=== PATIENT | female | born 1945 | race Caucasian/White ===

== ENCOUNTER 2020-08-09 19:01 | Inpatient (IN) | payer OTHER, MEDICARE, SELFPAY ==
[~2020-08-09] VITALS: Ht 134.6 cm; Wt 89.4 kg
--- NOTE | 2020-08-09 19:02 | NUR ---
PATIENT KYLE ALS TO ER BED 01
[2020-08-09 19:05] VITALS: BP 135/69
--- NOTE | 2020-08-09 19:06 | NUR ---
DAUGHTER'S PHONE NUMBER [phone] NAME UNKNOWN
--- NOTE | 2020-08-09 19:10 | NUR ---
75 Y/O FEMALE BIBA FROM HOME C/O SOB AND TACHYCARDIA. PT DENIES PAIN AT THIS TIME. NO DISTRESS NOTED. PT DENIES N/V/DIARRHEA. PT STATES 'I FEEL FINE'. A/OX4. PERRLA. LUNG SOUNDS ARE CLEAR BILATERALLY. NO EDEMA NOTED TO EXTREMITIES. BOWEL SOUNDS ARE ACTIVEX4 QUADRANTS. NORMAL HEART SOUNDS NOTED. PT IS NON-AMB. PT USES INCONTINENCE BRIEFS. PT IS SAO TOMEAN SPEAKING. CONNECTED TO THE PIPE COREMAKER. WILL CONTINUE TO MONITOR. PMH: HTN, DM, HYLD, POLIO NKA
--- NOTE | 2020-08-09 19:20 | NUR ---
XRAY AT BEDSIDE
--- NOTE | 2020-08-09 19:28 | NUR ---
LAB AT BEDSIDE
[2020-08-09] MEDS ORDERED: ACETAMINOPHEN 325 MG TAB PO ONE (19:45)
[2020-08-09] MEDS ORDERED: NACL 0.9% 1,000 ML IV ONE (19:45)
[2020-08-09] MEDS ORDERED: ACETAMINOPHEN EXTRA STRENGTH 500 MG TAB ONE (19:49)
[2020-08-09] MEDS ORDERED: ACETAMINOPHEN EXTRA STRENGTH 500 MG TAB PO ONE (19:50)
[2020-08-09 19:56] LABS: BASOPHILS % (AUTO) 0.2 % (0.0-2.0); HEMATOCRIT 33.5 % (36-48); HEMOGLOBIN 11.1 g/dL (12.0-16.0); LYMPHOCYTES # (AUTO) 0.9 K/uL (2.5-16.5); LYMPHOCYTES % (AUTO) 18.9 % (20.5-51.1); MEAN CORPUSCULAR HEMOGLOBIN 29 pg (27-31); MEAN CORPUSCULAR HGB CONC 33 g/dL (33-37); MEAN CORPUSCULAR VOLUME 86.7 fL (80-94); MONOCYTES # (AUTO) 0.3 K/uL (0.8-1.0); MONOCYTES % (AUTO) 5.9 % (1.7-9.3); NEUTROPHILS # (AUTO) 3.7 K/uL (1.8-7.7); PLATELET COUNT (AUTO) 251 K/uL (140-450); RED BLOOD CELL COUNT(AUTO) 3.87 MIL/uL (4.20-5.40); RED CELL DISTRIBUTION WIDTH 13.5 % (11.6-13.7); WHITE BLOOD COUNT (AUTO) 4.9 K/uL (4.8-10.8)
[2020-08-09 20:08] LABS: ALBUMIN 3.6 g/dL (3.4-5.0); ANION GAP 15.6 (8-16); ASPARTATE AMINOTRANSFERASE 17 U/L (15-37); CHLORIDE 98 mmol/L (98-107); CREATININE 0.5 mg/dL (0.6-1.3); GLUCOSE 134 mg/dL (74-106); POTASSIUM 3.6 mmol/L (3.5-5.1); SODIUM SERUM 133 mmol/L (136-145); TOTAL BILIRUBIN 0.2 mg/dL (0.0-1.0); UREA NITROGEN, BLOOD 13 mg/dL (7-18)
[2020-08-09 20:17] LABS: C-REACTIVE PROTEIN QUANT 2.6 mg/dL (0.0-0.9)
--- NOTE | 2020-08-09 20:40 | NUR ---
INSERTED STRIGHT CATHETERIZATION TO OBTAIN URINE SPECIMEN PER MD ORDER. PT TOLERATED WELL. URINE CLEAR AND YELLOW. 200ML OUTPUT. WILMER-CARE PROVIDED. PT WAS PLACED IN A GOWN
--- NOTE | 2020-08-09 21:00 | NUR ---
COVID SWAB COLLECTED AND WALKED OVER TO LAB
[2020-08-09 21:17] LABS: APPEARANCE,URINE CLEAR (CLEAR); BILIRUBIN,URINE NEGATIVE (NEGATIVE); BLOOD, URINE NEGATIVE (NEGATIVE); COLOR,URINE YELLOW (YELLOW); LEUKOCYTE ESTERASE ,URINE NEGATIVE (NEGATIVE); NITRITE, URINE NEGATIVE (NEGATIVE); UGLUCOSE NEGATIVE (NEGATIVE)
--- NOTE | 2020-08-09 21:53 | NUR ---
ERMD AT BEDSIDE
--- NOTE | 2020-08-09 22:35 | NUR ---
SPOKE WITH THE PTS SON ORACIO HOFF-HE GAVE HIS INFORMATION TO THE NEWSPAPER MANAGING EDITOR AND ITS IN THE PTS CHART. PT GAVE ME PERSMISSION TO SPEAK WITH HIM. THE PTS SON WAS UPDATED ON THE PTS STATUS AND ADMISSION TO THE HOSPITAL.
--- NOTE | 2020-08-09 23:30 | NUR ---
PT IS RESTING WITH EYES CLOSED. PT IS CONNECTED TO THE TANK CAR REPAIRER.BED IS LOCKED AND IN LOWEST POSITION. SIDE RAILSX2 FOR PT PROTECTION. PT IS NOT IN ANY DISTRESS AT THE MOMENT. WILL CONTINUE TO MONITOR.
[2020-08-09] MEDS ORDERED: MAG SULF 2000 MG/WATER PREMIX 50 ML IV PRN (23:45)
[2020-08-09] MEDS ORDERED: MORPHINE SULFATE 4 MG/ML SYR IVP PRN (23:45)
[2020-08-09] MEDS ORDERED: NACL 0.9% 1,000 ML IV SCH (23:45)
[2020-08-09] MEDS ORDERED: LORazepam 1 MG TAB PO PRN (23:45)
[2020-08-09] MEDS ORDERED: HYDROcodone/APAP 5/325 MG 1 TAB TAB PO PRN (23:45)
[2020-08-09] MEDS ORDERED: ONDANSETRON 4 MG/2 ML VIAL IVP PRN (23:45)
[2020-08-09] MEDS ORDERED: KCL 20 MEQ/WATER INJ PREMIX 200 ML IV PRN (23:45)
[2020-08-10] MEDS ORDERED: DEXTROSE 50% 50 ML SYR IVP PRN
--- NOTE | 2020-08-10 00:20 | NUR ---
PT IS RESTING WITH HOB ELEVATED IN SEMIFOWLERS POSITION. PT IS CONNECTED TO THE EMERGENCY DETAIL DRIVER. SAO2@97% ON 2L NC. PT IS NOT IN ANY DISTRESS AT THIS TIME. BED IS LOCKED AND IN LOWEST POSITION.SIDE RAILSX2. WILL CONTINUE TO MONITOR.
[2020-08-10] MEDS ORDERED: cefTRIAXone 1,000 MG VIAL ONE (00:35)
[2020-08-10] MEDS ORDERED: AZITHROMYCIN 500 MG INJ VIAL IV ONE (00:35)
--- NOTE | 2020-08-10 01:30 | NUR ---
PT IS RESTING WITH HOB ELEVATED IN SEMI-FOWLERS FOR COMFORT. PT STATED THE BED IS UNCOMFORTABLE. NOTIFIED HER THAT SHE WILL BE MOVING TO A BETTER BED AND ROOM AFTER 0700. PT IS CONNECTED TO THE PNEUMATIC JACKETER. SAO2@98% 2L NC. NO VISIBLE DISTRESS NOTED. BED IS LOCKED AND IN LOWEST POSITION. SIDE RAILSX2 FOR PT PROTECTION. WILL CONTINUE TO MONITOR.
[2020-08-10] MEDS: AZITHROMYCIN 500 MG in DEXTROSE 5% 250 ML IV SCH (01:50)
--- NOTE | 2020-08-10 02:39 | NUR ---
PT IS ASLEEP WITH HOB IN LOW FOWLERS POSITION. VISIBLE RISE AND FALL OF CHEST NOTED. PT IS CONNECTED TO THE IN HOUSE CRA. SAO2@97% ON 2L NC. BED IS LOCKED AND IN LOWEST POSITION. SIDE RAILSX1 FOR PT PROTECTION. WILL CONTINUE TO MONITOR.
--- NOTE | 2020-08-10 03:20 | NUR ---
PT IS ASLEEP. SIDE RAILSX2 FOR PT PROTECTION. BED IS LOCKED AND IN LOWEST POSITION. PT CONNECTED TO THE AQUATICS DIRECTOR. SAO2@97% ON 2 L NC. BED IS LOCKED AND IN LOWEST POSITION. PT IS NOT IN ANY DISTRESS AT THIS TIME. WILL CONTINUE TO MONITOR.
[2020-08-10] MEDS ORDERED: METF500T2 PO (04:13)
[2020-08-10] MEDS ORDERED: METO25TE2 PO (04:13)
--- NOTE | 2020-08-10 04:35 | NUR ---
PT IS ASLEEP. HOB IN LOW FOWLERS. BED IS LOCKED AND IN LOWEST POSITION. PT IS NOT IN ANY DISTRESS AT THIS TIME. PT CONNECTED TO THE PUBLIC HEALTH INFORMATICIAN. SIDE RAILSX2 FOR PT PROTECTION. WILL CONTINUE TO MONITOR
--- NOTE | 2020-08-10 05:40 | NUR ---
PT IS SLEEPING. VISIBLE RISE AND FALL OF CHEST NOTED. PT IS ON 2L NC SATTING AT 98%. PT IS NOT IN ANY DISTRESS AT THIS TIME. BED IS LOCKED AND IN LOWEST POSITION. CALL LIGHT WITHIN REACH. SIDE RAILSX2 FOR PT PROTECTION. WILL CONTINUE TO MONITOR.
--- NOTE | 2020-08-10 06:28 | NUR ---
PT IS SLEEPING. VISIBLE RISE AND FALL OF CHEST NOTED. PT IS CONNECTED TO THE RIDES SUPERVISOR. SAO2@97% ON 2 L NC. BED IS LOCKED AND IN LOWEST POSITION. PT IS NOT IN ANY DSTRESS AT THIS TIME. CALL LIGHT IS WITHIN REACH. SIDE RAILS X2 FOR PT PROTECTION. WILL CONTINUE TO MONITOR.
--- NOTE | 2020-08-10 06:39 | NUR ---
BLOOD GLUCOSE LEVEL@94
--- NOTE | 2020-08-10 06:40 | NUR ---
ORAL TEMP AT 99.8---DID NOT ADMIN TYLENOL BECAUSE PRN ORDERS FOR TYLENOL FOR A TEMP GREATER THAN 100.4
[2020-08-10] MEDS: BLOOD GLUCOSE MONITORING 1 DEV DEV FS SCH ×4 (06:42→20:59)
--- NOTE | 2020-08-10 06:47 | NUR ---
PT C/O MILD PAIN 310 IN HER LOWER BACK FROM THE BED. I LET HER KNOW THAT SHE WILL BE MOVING TO A NEW BED AND NEW ROOM WITHIN THE NEXT 1-2 HOURS.
[2020-08-10] MEDS: ACETAMINOPHEN 325 MG TAB PO PRN ×2 (06:51→17:08)
--- NOTE | 2020-08-10 07:15 | NUR ---
REPORT GIVEN TO HAYLEY ANDERSON FOR TRANSFER OF CARE.
--- NOTE | 2020-08-10 07:16 | NUR ---
REPORT RECEIVED FROM FRANCHESCA HARDY, TRANSFER OF CARE AT THIS TIME
--- NOTE | 2020-08-10 07:30 | NUR ---
PT ALERT AND AWAKE, BREATHING EVEN AND UNLABORED. NO DISTRESS NOTED. PT GIVEN TISSUE [place]
[2020-08-10 07:40] LABS: BASOPHILS % (AUTO) 0.6 % (0.0-2.0); EOSINOPHILS % (AUTO) 0.1 % (0.0-4.0); HEMATOCRIT 31.7 % (36-48); HEMOGLOBIN 10.4 g/dL (12.0-16.0); LYMPHOCYTES # (AUTO) 1.3 K/uL (2.5-16.5); LYMPHOCYTES % (AUTO) 31.5 % (20.5-51.1); MEAN CORPUSCULAR HEMOGLOBIN 28 pg (27-31); MEAN CORPUSCULAR HGB CONC 33 g/dL (33-37); MEAN CORPUSCULAR VOLUME 86.5 fL (80-94); MONOCYTES # (AUTO) 0.3 K/uL (0.8-1.0); MONOCYTES % (AUTO) 7.3 % (1.7-9.3); NEUTROPHILS # (AUTO) 2.4 K/uL (1.8-7.7); NEUTROPHILS % (AUTO) 60.5 % (42.2-75.2); PLATELET COUNT (AUTO) 216 K/uL (140-450); RED BLOOD CELL COUNT(AUTO) 3.67 MIL/uL (4.20-5.40); RED CELL DISTRIBUTION WIDTH 13.5 % (11.6-13.7)
--- NOTE | 2020-08-10 08:00 | NUR ---
Note blossom in EDM - 08/10/20 at 0906 by ROBERTO Patient will be admitted to care of Dr Zuñiga. Admited to tele. Will go to room 113A. Belongings list completed. Report to Adriana HARDY.
--- NOTE | 2020-08-10 08:00 | NUR ---
Patient will be admitted to care of Dr Zuñiga. Admited to [facility]. Will go to room 113A. Belongings list completed. Report to Adriana HARDY.
--- NOTE | 2020-08-10 08:00 | NUR ---
Note blossom in EDM - 08/10/20 at 0801 by ROBERTO Patient will be admitted to care of Dr Zuñiga. Admited to [facility]. Will go to room 113A. Belongings list completed. Report to Adriana HARDY.
[2020-08-10] MEDS: DOCUSATE SODIUM 100 MG GELCAP PO SCH (08:47)
[2020-08-10 08:50] LABS: PROTHROMBIN TIME 9.7 secs (10.8-13.4)
[2020-08-10 09:00] VITALS: BP_SYST 148; BP_SYST 164; BP_DIAS 63; BP_DIAS 96
--- NOTE | 2020-08-10 09:00 | NUR ---
RECEIVED PATIENT FROM ED. PT RESTING IN BED. ABLE TO MAKE NEEDS KNOWN. RESPIRATIONS EVEN AND UNLABORED WITH NO SOB OR RESPIRATORY DISTRESS. SKIN WARM AND DRY TO TOUCH. IV SITE IN R HAND 20G IS CLEAN, DRY, AND INTACT. PT ON 2L NC. SAFETY MEASURES IN PLACE. WILL CONTINUE TO MONITOR
--- NOTE | 2020-08-10 09:00 | NUR ---
PT TAKEN TO ROOM 113 AT THIS TIME. PRIMARY RN AT BEDSIDE
[2020-08-10 10:00] LABS: ALBUMIN 3.1 g/dL (3.4-5.0); ANION GAP 16.6 (8-16); ASPARTATE AMINOTRANSFERASE 21 U/L (15-37); CARBON DIOXIDE 22.4 mmol/L (21-32); CHLORIDE 101 mmol/L (98-107); CREATININE 0.4 mg/dL (0.6-1.3); GLUCOSE 103 mg/dL (74-106); MAGNESIUM 1.7 mg/dL (1.8-2.4); SODIUM SERUM 136 mmol/L (136-145); TOTAL BILIRUBIN 0.2 mg/dL (0.0-1.0); UREA NITROGEN, BLOOD 10 mg/dL (7-18)
--- NOTE | 2020-08-10 11:25 | NUR ---
SOCIAL WORK NOTE: Patient's Orientation Unable To Assess Information Provided By ORACIO HOFF - SON Comments SW WAS UNABLE TO MEET PATIENT AT BEDSIDE DUE TO MEDICAL CONDITION. SW COMPLETED ASSESSMENT WITH PATIENT'S SON. Artist Relationship Manager, Realtionship and Phone Number ORACIO PAVON [phone] JORGE HOFF DAUGHTER [phone] Healthcare Power of Coal Crusher Operator No Does Patient Have a POLST No Identifying Problems No Social Work Triggers Is A Social Work Consult Needed No Mandate Report Filed No Explanation Of Identifying Problems PATIENT IS A 75-YEAR-OLD FEMALE ADMITTED FOR MULTIFOCAL PNEUMONIA. PATIENT HAS PMHX OF HYPERTENSION, DIABETES, AND POLIO. PATIENT'S SON REPORTED NO HISTORY OF SUBSTANCE ABUSE OR MENTAL HEALTH. Admitted From Home Pre-Admission Level Of Functioning Status Assist With ADL Level Of Functioning Comment PATIENT RECEIVES ASSISTANCE PREPARING MEALS, CLEANING, BATHING, WITH TRANSPORTATION, AND DISPENSING MEDICATION. Prior Resources/Services Used In Last 12 Months [facility] Prior Resources/Service Comments PATIENT RECEIVES 79 HOURS FROM [facility] MONTHLY. Prior DME Power Wheelchair/Scooter Dialysis Comments N/A Living Situation Lives With Family House Other Living Situation/Comment PATIENT LIVES WITH SON/CAREGIVER, ORACIO HOFF. Patient Had Caregiver Yes Name and Contact Number Of Designated Caregiver ORACIO HOFF - [phone] Home Support No Caregiver Issues CG/Fam Able To Meet Need Financial Issues No Known Financial Issue Referral To The Financial Counselor Needed No Factors/Needs No D/C Needs Identified Explanation And Or Other Factors Affecting/Possible DC Needs PATIENT'S SON STATED HE WOULD PROVIDE TRANSPORATION HOME. Pt/Rep Participated In Discharge Plan Yes Patient/Family Agress With Discharge Plan Yes Discharge Plan Comments TENTATIVE DISCHARGE PLAN IS FOR PATIENT TO RETURN HOME. DC Plan Status Initiated
--- NOTE | 2020-08-10 11:30 | NUR ---
PT BLOOD SUGAR IS 191. PRN INSULIN WILL BE ADMINISTERED PRESCRIBED PER MD ORDER. SAFETY MEASURES IN PLACE WILL CONTINUE TO MONITOR.
[2020-08-10] MEDS: INSULIN LISPRO SLIDING SCALE 100 UNITS/ML VIAL SUBQ PRN ×2 (12:02→21:00)
--- NOTE | 2020-08-10 12:15 | NUR ---
ADMINISTERED PRN INSULIN PRESCRIBED PER MD ORDER. PT TOLERATED WELL. MEDICATION EDUCATION PERFORMED. PT VERBALIZED UNDERSTANDING. SAFETY MEASURES IN PLACE. WILL CONTINUE TO MONITOR
[2020-08-10] MEDS ORDERED: DEXAMETHASONE 4 MG/ML VIAL IVP SCH (13:14)
[2020-08-10] MEDS ORDERED: METOPROLOL 25 MG TAB PO SCH (13:15)
[2020-08-10] MEDS ORDERED: ENOXAPARIN 30 MG/0.3 ML SYR SUBQ SCH (13:15)
[2020-08-10] MEDS ORDERED: MAG SULF 2000 MG/WATER PREMIX 50 ML IV SCH (14:00)
--- NOTE | 2020-08-10 14:15 | NUR ---
PT RESTING IN BED. ABLE TO MAKE NEEDS KNOWN. RESPIRATIONS EVEN AND UNLABORED WITH NO SOB OR RESPIRATORY DISTRESS. SAFETY MEASURES IN PLACE. WILL CONTINUE TO MONITOR
--- NOTE | 2020-08-10 14:40 | NUR ---
DC PLANNIN YRS OLD FEMALE PATIENT WAS ADMITTED FROM HOME WITH A DX OF MULTIFOCAL PNEUMONIA. PT HAS A HX OF HTN, DM AND POLIO. CXR SHOWED NO RADIOGRAPHICALLY ACUTE CARDIOPULMONARY DISEASE. RAPID COVID TEST POSITIVE . URINE AND BLOOD CULTURE PENDING. STARTED COVID PROTOCOL WITH IV DECADRON , ROCEPHIN AND AZITHROMYCIN. CONSULTED WITH GIL , O2 2L/NC SATING 95% DC PLAN TO GO HOME WHEN STABLE CM TO FOLLOW. Addendum: 08/18/20 at 1621 by Pamela Balbuena RN DC PLANNING RECEIVED A CALL FROM PT'S SON MAYELIN UPDATED PT'S CLINICALS, PER MAYELIN RECEIVED HOME O2 AND PORTABLE OXYGEN . PT IS CURRENTLY ON 15L NON REBREATHER SATING 92%, COMPLETED REMDESEVIR AND CONVALESCENT PLASMA CM TO FOLLOW Addendum: 08/19/20 at 1305 by Carolina Jj CM DC CLIENT SUPPORT REPRESENTATIVE: RECEIVED ORDER FOR HOME HEALTH SAFETY FAXED ORDER TO [facility] Addendum: 08/19/20 at 1557 by Carolina Jj CM TG IZAGUIRRE: RECEIVED A CALL FROM JUAN CARLOS FROM [facility] THEY ARE ABLE TO ACCEPT THIS PATIENT.
--- NOTE | 2020-08-10 15:00 | NUR ---
PT INTACT IV CANNULA WAS CAUSING PAIN. NO FLUSHING ABILITY OR BLOOD RETURN. OLD IV REMOVED AND NEW IV INSERTED IN RAC 22G IS CLEAN, DRY, AND INTACT. WILL CONTINUE TO MONITOR
--- NOTE | 2020-08-10 15:36 | NUR ---
ADMINISTERED PRESCRIBED MEDS PER MD ORDER. PATIENT TOLERATED WELL. MEDICATION EDUCATION REINFORCEMENT NEEDED DUE TO LANGUAGE BARRIER. SAFETY MEASURES IN PLACE. WILL CONT TO MONITOR.
[2020-08-10 16:00] VITALS: BP 123/52
--- NOTE | 2020-08-10 16:01 | NUR ---
PATIENT HAS BEEN SCREENED AND CATEGORIZED MODERATE NUTRITION RISK. PATIENT WILL BE SEEN WITHIN 3-5 DAYS OF ADMISSION. 08/12/20 08/14/[address]
--- NOTE | 2020-08-10 16:30 | NUR ---
PT BLOOD SUGAR IS 123. NO INSULIN NEEDED AT THIS TIME. WILL CONTINUE TO MONITOR
--- NOTE | 2020-08-10 18:15 | NUR ---
PT RESTING IN BED. ABLE TO MAKE NEEDS KNOWN. NO SIGNS OF DISTRESS NOTED. WILL CONTINUE TO MONITOR
--- NOTE | 2020-08-10 19:30 | NUR ---
ENDORSED TO NIGHTSHIFT NURSE. PT IS STABLE
--- NOTE | 2020-08-10 19:31 | NUR ---
RECD. RESTING IN BED, AWAKE, A/OX4. RESPIRATION EVEN AND UNLABORED. IV SALINE LOCK AT THE RIGHT AC G 22 PATENT AND INTACT. ON 02 AT 4 LITERS N/C, 02 SATURATION 905%. COLOR NORMAL PER ETHNICITY. ABLE TO VERBALIZED NEEDS. SAFETY MEASURES ENFORCED. BED ON THE LOWEST POSITION, SIDE RAILS UP, BED ON ALARM. ON IV ANTIBIOTICS. INSTRUCTED TO CALL NURSE WHENEVER NEEDING HELP, VERBALIZED UNDERSTANDING. DENIES PAIN 0/10.
[2020-08-10 20:00] VITALS: BP 121/64
[2020-08-10] MEDS: ASCORBIC ACID 500 MG TAB PO SCH (20:38)
[2020-08-10] MEDS: ZINC SULF 220 MG CAP PO SCH (20:38)
[2020-08-10] MEDS: METOPROLOL 25 MG TAB PO SCH (20:39)
[2020-08-10] MEDS: FAMOTIDINE 20 MG TAB PO SCH (20:39)
--- NOTE | 2020-08-10 20:39 | NUR ---
DUE PO MEDICATIONS GIVEN.
--- NOTE | 2020-08-10 21:00 | NUR ---
PLAN OF CARE DISCUSSED WITH SKYLAR DAVIS LVN.
--- NOTE | 2020-08-11 | NUR ---
SLEEPING COMFORTABLY IN BED, NO SOB NOTED.
[2020-08-11] MEDS: AZITHROMYCIN 500 MG in DEXTROSE 5% 250 ML IV SCH ×2 (00:54→23:45)
--- NOTE | 2020-08-11 03:00 | NUR ---
TOLERATED WELL ALL ANTIBIOTICS INFUSED BY HAYLEY RASMUSSEN.
[2020-08-11 04:00] VITALS: BP 138/63
--- NOTE | 2020-08-11 04:00 | NUR ---
LYING ON HER RIGHT SIDE, NO RESPIRATORY DISTRESS NOTED.
--- NOTE | 2020-08-11 06:35 | NUR ---
AWAKE IN BED, BS CHECKED - 119 - NO COVERAGE.
[2020-08-11] MEDS: BLOOD GLUCOSE MONITORING 1 DEV DEV FS SCH ×4 (06:37→20:48)
--- NOTE | 2020-08-11 07:24 | NUR ---
CONDITION REMAIN STABLE. ENDORSED TO AM SHIFT NURSE FOR CONTINUITY OF CARE.
--- NOTE | 2020-08-11 07:25 | NUR ---
RECEIVED REPORT FROM NIGHTSHIFT NURSE. PT RESTING IN BED. ABLE TO MAKE NEEDS KNOWN. RESPIRATIONS EVEN AND UNLABORED WITH NO SOB OR RESPIRATORY DISTRESS. SKIN WARM AND DRY TO TOUCH. IV SITE IN R HAND 20G IS CLEAN, DRY, AND INTACT. SAFETY MEASURES IN PLACE. WILL CONTINUE TO MONITOR
[2020-08-11 08:00] VITALS: BP 141/72
[2020-08-11 08:37] LABS: BASOPHILS % (AUTO) 0.1 % (0.0-2.0); EOSINOPHILS % (AUTO) 0.1 % (0.0-4.0); HEMATOCRIT 29.1 % (36-48); LYMPHOCYTES # (AUTO) 1.2 K/uL (2.5-16.5); LYMPHOCYTES % (AUTO) 23.6 % (20.5-51.1); MEAN CORPUSCULAR HEMOGLOBIN 29 pg (27-31); MEAN CORPUSCULAR HGB CONC 34 g/dL (33-37); MEAN CORPUSCULAR VOLUME 85.1 fL (80-94); MONOCYTES # (AUTO) 0.3 K/uL (0.8-1.0); MONOCYTES % (AUTO) 5.2 % (1.7-9.3); NEUTROPHILS # (AUTO) 3.5 K/uL (1.8-7.7); PLATELET COUNT (AUTO) 202 K/uL (140-450); RED BLOOD CELL COUNT(AUTO) 3.42 MIL/uL (4.20-5.40); RED CELL DISTRIBUTION WIDTH 13.5 % (11.6-13.7); WHITE BLOOD COUNT (AUTO) 4.9 K/uL (4.8-10.8)
[2020-08-11 08:44] LABS: PROTHROMBIN TIME 9.8 secs (10.8-13.4)
[2020-08-11] MEDS ORDERED: ENOXAPARIN 30 MG/0.3 ML SYR SUBQ SCH (09:00)
[2020-08-11 09:05] LABS: ALBUMIN 2.9 g/dL (3.4-5.0); ANION GAP 12.2 (8-16); ASPARTATE AMINOTRANSFERASE 22 U/L (15-37); CARBON DIOXIDE 26.1 mmol/L (21-32); CHLORIDE 101 mmol/L (98-107); CREATININE 0.4 mg/dL (0.6-1.3); GLUCOSE 104 mg/dL (74-106); MAGNESIUM 1.8 mg/dL (1.8-2.4); POTASSIUM 3.3 mmol/L (3.5-5.1); SODIUM SERUM 136 mmol/L (136-145); TOTAL BILIRUBIN 0.2 mg/dL (0.0-1.0); UREA NITROGEN, BLOOD 12 mg/dL (7-18)
[2020-08-11] MEDS: DEXAMETHASONE 4 MG/ML VIAL IVP SCH (09:20)
[2020-08-11] MEDS: DOCUSATE SODIUM 100 MG GELCAP PO SCH (09:21)
[2020-08-11] MEDS: ASCORBIC ACID 500 MG TAB PO SCH ×2 (09:23→21:52)
[2020-08-11] MEDS: FAMOTIDINE 20 MG TAB PO SCH (09:23)
[2020-08-11] MEDS: METOPROLOL 25 MG TAB PO SCH ×2 (09:23→21:52)
[2020-08-11] MEDS: ZINC SULF 220 MG CAP PO SCH ×2 (09:23→21:52)
--- NOTE | 2020-08-11 09:45 | NUR ---
ADMINISTERED SCHED MED PRESCRIBED PER MD ORDER. PT TOLERATED WELL. PT HAS FEVER. PRN TYLENOL ADMINISTERED PRESCRIBED PER MD ORDER.MEDICATION EDUCATION PERFORMED. PT VERBALIZED UNDERSTANDING. SAFETY MEASURES IN PLACE. WILL CONTINUE TO MONITOR
[2020-08-11] MEDS: ACETAMINOPHEN 325 MG TAB PO PRN ×2 (10:00→21:49)
--- NOTE | 2020-08-11 10:04 | NUR ---
PATIENT WANTED TO WEAN OFF OXYGEN. TOOK 3L NC OFF PATIENT FOR 15 MINUTES AND PATIENT IS SATURATING AT 92% ON ROOM AIR. SAFETY MEASURES IN PLACE. WILL CONTINUE TO MONITOR
--- NOTE | 2020-08-11 11:30 | NUR ---
PT O2 AT 81-83% ON ROOM AIR. PLACED PATIENT BACK ON 2L NC. PT BLOOD SUGAR IS 165. PRN INSULIN WILL BE ADMINISTERED PRESCRIBED PER MD ORDER WITH NEXT MEAL. SAFETY MEASURES IN PLACE. WILL CONTINUE TO MONITOR
[2020-08-11] MEDS: INSULIN LISPRO SLIDING SCALE 100 UNITS/ML VIAL SUBQ PRN ×2 (12:21→18:15)
--- NOTE | 2020-08-11 12:30 | NUR ---
ADMINISTERED SCHED MED PRESCRIBED PER MD ORDER. PT TOLERATED WELL. MEDICATION EDUCATION PERFORMED. PT VERBALIZED UNDERSTANDING. SAFETY MEASURES IN PLACE. WILL CONTINUE TO MONITOR
--- NOTE | 2020-08-11 14:04 | NUR ---
PT COMPLAINING OF SOB. PT O2 AT 67%. CALLED RT. INCREASED PT O2 FROM 15L OXYMIZER TO 15L NON REBREATHER MASK PER RT. AWARE. SAFETY MEASURES IN PLACE. WILL CONTINUE TO MONITOR Addendum: 08/11/20 at 1906 by Adriana Mosher RN WRONG ENTRY. DISREGARD NOTE
--- NOTE | 2020-08-11 16:00 | NUR ---
OBTAINED CONSENT FROM BOTH DR. OLIVER AND PATIENT FOR PLASMA TRANSFUSION. USED SENIOR SECURITY ARCHITECT [employer] FOR CONSENT. PLACED IN CHART. CALLED FAMILY TO GIVE UPDATE ON PATIENT. SAFETY MEASURES IN PLACE WILL CONTINUE TO MONITOR
[2020-08-11] MEDS ORDERED: remdesivir COMMUNICATION ORDER 1 EA MISC MC PRN (16:35)
[2020-08-11] MEDS: POTASSIUM CHLORIDE 10 MEQ TABER PO PRN (17:21)
--- NOTE | 2020-08-11 18:24 | NUR ---
ADMINISTERED SCHED MED PRESCRIBED PER MD ORDER. PT TOLERATED WELL. MEDICATION EDUCATION PERFORMED. PT VERBALIZED UNDERSTANDING. SAFETY MEASURES IN PLACE. WILL CONTINUE TO MONITOR
[2020-08-11] MEDS ORDERED: remdesivir CLINICAL MONITORING 1 EA MISC MC PRN (19:15)
[2020-08-11] MEDS ORDERED: REMDESIVIR (EUA) 200 MG in NACL 0.9% 100 ML IV ONE (19:15)
--- NOTE | 2020-08-11 19:20 | NUR ---
RECEIVED PATIENT FROM AM SHIFT NURSE FOR CONTINUITY OF CARE. AAOX4. RESPIRATIONS EVEN, UNLABORED. CONTINUES ON O2 2L VIA NC, O2SAT 97%. SKIN WARM, DRY. SALINE LOCK TO RIGHT AC 20G PATENT/INTACT. NO C/O PAIN. NO S/S ACUTE DISTRESS. ABDOMEN SOFT, NONTENDER, NONDISTENDED. BOWEL SOUNDS ACTIVE X4 QUADRANTS. PATIENT CONTINENT OF B/B. PLAN OF CARE DISCUSSED. CALL LIGHT WITHIN REACH. SAFETY PRECAUTIONS IN PLACE. ISOLATION PRECAUTIONS OBSERVED BY ALL STAFF.
[2020-08-11 20:00] VITALS: BP 118/66
--- NOTE | 2020-08-11 21:45 | NUR ---
DUE MEDS GIVEN. CALL LIGHT WITHIN REACH. SAFETY PRECAUTIONS IN PLACE. ISOLATION PRECAUTIONS OBSERVED BY ALL STAFF.
[2020-08-11] MEDS: ENOXAPARIN 80 MG/0.8 ML SYR SUBQ SCH (22:05)
--- NOTE | 2020-08-11 23:15 | NUR ---
PATIENT RESTING COMFORTABLY IN BED. REPOSITIONED FOR COMFORT. NO C/O PAIN. NO S/S ACUTE DISTRESS. CALL LIGHT WITHIN REACH. SAFETY PRECAUTIONS IN PLACE. ISOLATION PRECAUTIONS OBSERVED BY ALL STAFF.
--- NOTE | 2020-08-12 01:20 | NUR ---
PATIENT IS ASLEEP. NO S/S ACUTE DISTRESS. CALL LIGHT WITHIN REACH.
--- NOTE | 2020-08-12 03:45 | NUR ---
MADE ROUNDS. PATIENT IS SLEEPING WELL. NO S/S ACUTE DISTRESS. CALL LIGHT WITHIN REACH. ISOLATION PRECAUTIONS OBSERVED BY ALL STAFF.
[2020-08-12 04:00] VITALS: BP 116/65
--- NOTE | 2020-08-12 05:04 | NUR ---
PATIENT ASLEEP IN BED. NO S/S ACUTE DISTRESS. CALL LIGHT WITHIN REACH. SAFETY PRECAUTIONS IN PLACE. ISOLATION PRECAUTIONS OBSERVED BY ALL STAFF.
[2020-08-12] MEDS: INSULIN LISPRO SLIDING SCALE 100 UNITS/ML VIAL SUBQ PRN ×2 (05:51→11:34)
[2020-08-12] MEDS: BLOOD GLUCOSE MONITORING 1 DEV DEV FS SCH ×4 (07:00→20:51)
--- NOTE | 2020-08-12 07:15 | NUR ---
ENDORSED TO AM SHIFT NURSE FOR CONTINUITY OF CARE.
[2020-08-12 08:00] VITALS: BP 134/68
[2020-08-12 08:09] LABS: PROTHROMBIN TIME 10.1 secs (10.8-13.4)
[2020-08-12 08:21] LABS: BASOPHILS % (AUTO) 0.2 % (0.0-2.0); HEMATOCRIT 29.2 % (36-48); HEMOGLOBIN 9.7 g/dL (12.0-16.0); LYMPHOCYTES # (AUTO) 0.8 K/uL (2.5-16.5); LYMPHOCYTES % (AUTO) 24.7 % (20.5-51.1); MEAN CORPUSCULAR HEMOGLOBIN 28 pg (27-31); MEAN CORPUSCULAR HGB CONC 33 g/dL (33-37); MEAN CORPUSCULAR VOLUME 85.3 fL (80-94); MONOCYTES # (AUTO) 0.2 K/uL (0.8-1.0); MONOCYTES % (AUTO) 4.6 % (1.7-9.3); NEUTROPHILS # (AUTO) 2.3 K/uL (1.8-7.7); NEUTROPHILS % (AUTO) 70.5 % (42.2-75.2); PLATELET COUNT (AUTO) 186 K/uL (140-450); RED BLOOD CELL COUNT(AUTO) 3.43 MIL/uL (4.20-5.40); RED CELL DISTRIBUTION WIDTH 13.8 % (11.6-13.7); WHITE BLOOD COUNT (AUTO) 3.3 K/uL (4.8-10.8)
[2020-08-12] MEDS: DOCUSATE SODIUM 100 MG GELCAP PO SCH (09:19)
[2020-08-12] MEDS: PANTOPRAZOLE 40 MG INJ VIAL IVP SCH (09:19)
[2020-08-12] MEDS: ASCORBIC ACID 500 MG TAB PO SCH ×2 (09:24→20:41)
[2020-08-12] MEDS: ZINC SULF 220 MG CAP PO SCH ×2 (09:24→20:40)
[2020-08-12] MEDS: METOPROLOL 25 MG TAB PO SCH ×2 (09:25→20:41)
[2020-08-12] MEDS: ENOXAPARIN 80 MG/0.8 ML SYR SUBQ SCH ×2 (09:27→20:51)
[2020-08-12 09:29] LABS: ALBUMIN 2.8 g/dL (3.4-5.0); ANION GAP 13.8 (8-16); ASPARTATE AMINOTRANSFERASE 30 U/L (15-37); CARBON DIOXIDE 25.3 mmol/L (21-32); CHLORIDE 99 mmol/L (98-107); CREATININE 0.4 mg/dL (0.6-1.3); GLUCOSE 154 mg/dL (74-106); POTASSIUM 4.1 mmol/L (3.5-5.1); SODIUM SERUM 134 mmol/L (136-145); TOTAL BILIRUBIN 0.2 mg/dL (0.0-1.0); UREA NITROGEN, BLOOD 15 mg/dL (7-18)
[2020-08-12] MEDS: DEXAMETHASONE 4 MG/ML VIAL IVP SCH (09:33)
--- NOTE | 2020-08-12 11:34 | NUR ---
PT WAS GIVEN INSULIN 8UNITS FOR BLOOD GLUCOSE OF 302, ON THE ABDOMEN, WILL MONITOR PT.
[2020-08-12 12:00] VITALS: BP 128/74
--- NOTE | 2020-08-12 13:30 | NUR ---
PT IS SLEEPING NOW AND NO SIGN OF DISTRESS NOTED, WILL MONITOR PT.
[2020-08-12 14:14] LABS: MAGNESIUM 1.7 mg/dL (1.8-2.4)
--- NOTE | 2020-08-12 15:25 | NUR ---
PT WAS CLEANED AND WAS REPOSITIONED NOW.
[2020-08-12] MEDS: REMDESIVIR (EUA) 100 MG in NACL 0.9% 100 ML IV SCH (18:18)
--- NOTE | 2020-08-12 18:18 | NUR ---
PT WAS GIVEN IVP MEDICATION AND BLOOD GLUCOSE WAS CHECKED AND IS 135, NO INSULIN COVERAGE NEEDED, WILL MONITOR PT.
--- NOTE | 2020-08-12 19:20 | NUR ---
RECEIVED BEDSIDE REPORT FROM DAY SHIFT NURSE. PATIENT IS AWAKE, ALERT, AND COOPERATIVE. RESPIRATION EVEN UNLABORED ON 4L NC O2. SATING 95%. NO DISTRESS NOTED. SKIN IS WARM AND DRY. IV PATENT AND INTACT. PLAN OF CARE WAS DISCUSSED. ALL SAFETY MEASURES IN PLACE. BED IS AT LOW POSITION. CALL LIGHT WITHIN REACH. WILL CONTINUE TO MONITOR
--- NOTE | 2020-08-12 19:35 | NUR ---
ENDORSED PT TO CARD HAND NURSE FOR CONTINUITY OF CARE.
[2020-08-12 20:00] VITALS: BP 122/76
[2020-08-12] MEDS ORDERED: CRUSHER, PILL MC ONE (20:44)
--- NOTE | 2020-08-12 20:50 | NUR ---
ALL SCHEDULED MEDS WERE GIVEN PER ORDER. NO ASE NOTED. WILL CONTINUE TO MONITOR.
--- NOTE | 2020-08-12 21:30 | NUR ---
SPOKE WITH ORACIO HOFF PATIENT SON'S TO DISCUSSED PLAN OF CARE.
--- NOTE | 2020-08-13 02:13 | NUR ---
CHECKED ON PATIENT. PATIENT SLEEPING RESPIRATION EVEN UNLABORED ON 4L NC O2. NO DISTRESS NOTED. WILL CONTINUE TO MONITOR
[2020-08-13 04:00] VITALS: BP 124/65
--- NOTE | 2020-08-13 04:10 | NUR ---
VITALS WERE TAKEN. PATIENT IN STABLE CONDITION.
[2020-08-13] MEDS: BLOOD GLUCOSE MONITORING 1 DEV DEV FS SCH ×4 (07:08→21:37)
--- NOTE | 2020-08-13 07:26 | NUR ---
ENDORSED PATIENT TO DAY SHIFT NURSE FOR CONTINUITY OF CARE.
--- NOTE | 2020-08-13 07:31 | NUR ---
RECEIVED REPORT FROM NIGHTSHIFT NURSE. PT RESTING IN BED. ABLE TO MAKE NEEDS KNOWN. RESPIRATIONS EVEN AND UNLABORED WITH NO SOB OR RESPIRATORY DISTRESS. SKIN WARM AND DRY TO TOUCH. IV SITE IN RAC 22G IS CLEAN, DRY, AND INTACT. SAFETY MEASURES IN PLACE. WILL CONTINUE TO MONITOR
[2020-08-13 08:00] VITALS: BP 126/72
[2020-08-13 08:52] LABS: BASOPHILS % (AUTO) 0.2 % (0.0-2.0); HEMOGLOBIN 10.1 g/dL (12.0-16.0); LYMPHOCYTES # (AUTO) 1.4 K/uL (2.5-16.5); LYMPHOCYTES % (AUTO) 20.8 % (20.5-51.1); MEAN CORPUSCULAR HEMOGLOBIN 29 pg (27-31); MEAN CORPUSCULAR HGB CONC 34 g/dL (33-37); MEAN CORPUSCULAR VOLUME 84.9 fL (80-94); MONOCYTES # (AUTO) 0.4 K/uL (0.8-1.0); MONOCYTES % (AUTO) 5.8 % (1.7-9.3); NEUTROPHILS % (AUTO) 73.2 % (42.2-75.2); PLATELET COUNT (AUTO) 201 K/uL (140-450); RED BLOOD CELL COUNT(AUTO) 3.54 MIL/uL (4.20-5.40); RED CELL DISTRIBUTION WIDTH 13.8 % (11.6-13.7); WHITE BLOOD COUNT (AUTO) 6.8 K/uL (4.8-10.8)
[2020-08-13 10:21] LABS: ALBUMIN 2.7 g/dL (3.4-5.0); ANION GAP 11.9 (8-16); ASPARTATE AMINOTRANSFERASE 30 U/L (15-37); CARBON DIOXIDE 26.5 mmol/L (21-32); CHLORIDE 99 mmol/L (98-107); CREATININE 0.4 mg/dL (0.6-1.3); GLUCOSE 87 mg/dL (74-106); MAGNESIUM 1.5 mg/dL (1.8-2.4); POTASSIUM 3.4 mmol/L (3.5-5.1); SODIUM SERUM 134 mmol/L (136-145); TOTAL BILIRUBIN 0.3 mg/dL (0.0-1.0); UREA NITROGEN, BLOOD 19 mg/dL (7-18)
[2020-08-13] MEDS: ENOXAPARIN 80 MG/0.8 ML SYR SUBQ SCH ×2 (10:22→21:27)
[2020-08-13] MEDS: ZINC SULF 220 MG CAP PO SCH ×2 (10:25→21:26)
[2020-08-13] MEDS: DOCUSATE SODIUM 100 MG GELCAP PO SCH (10:25)
--- NOTE | 2020-08-13 10:25 | NUR ---
ADMINISTERED SCHED MED PRESCRIBED PER MD ORDER. PT TOLERATED WELL. MEDICATION EDUCATION EDUCATION PERFORMED. PT VERBALIZED UNDERSTANDING. SAFETY MEASURES IN PLACE. WILL CONTINUE TO MONITOR
[2020-08-13] MEDS: ASCORBIC ACID 500 MG TAB PO SCH ×2 (10:26→21:26)
[2020-08-13] MEDS: PANTOPRAZOLE 40 MG INJ VIAL IVP SCH (10:26)
[2020-08-13] MEDS: METOPROLOL 25 MG TAB PO SCH ×2 (10:27→21:26)
[2020-08-13] MEDS: DEXAMETHASONE 4 MG/ML VIAL IVP SCH (10:27)
--- NOTE | 2020-08-13 11:30 | NUR ---
PT BLOOD SUGAR IS 164. PT HAS DECREASED APPETITE. HOLD INSULIN. WILL CONTINUE TO MONITOR
--- NOTE | 2020-08-13 13:15 | NUR ---
SON AT WINDOW LOOKING AT PATIENT. PT COMMUNICATING TO SON VIA PHONE WHILE HE IS AT THE WINDOW. WILL CONTINUE TO MONITOR
--- NOTE | 2020-08-13 15:30 | NUR ---
PT RESTING IN BED. ABLE TO MAKE NEEDS KNOWN. RESPIRATIONS EVEN AND UNLABORED WITH NO SOB OR RESPIRATORY DISTRESS. SKIN WARM AND DRY TO TOUCH. SAFETY MEASURES IN PLACE. WILL CONTINUE TO MONITOR
--- NOTE | 2020-08-13 16:30 | NUR ---
PT BLOOD SUGAR IS 219. PRN INSULIN TO BE ADMINISTERED PRESCRIBED PER MD ORDER. WILL CONTINUE TO MONITOR
[2020-08-13] MEDS: INSULIN LISPRO SLIDING SCALE 100 UNITS/ML VIAL SUBQ PRN (17:13)
[2020-08-13] MEDS: ACETAMINOPHEN 325 MG TAB PO PRN (17:15)
[2020-08-13] MEDS: POTASSIUM CHLORIDE 10 MEQ TABER PO PRN (17:15)
--- NOTE | 2020-08-13 17:27 | NUR ---
ADMINISTERED SCHED MED PRESCRIBED PER MD ORDER. PT TOLERATED WELL. MEDICATION EDUCATION EDUCATION PERFORMED. PT VERBALIZED UNDERSTANDING. SAFETY MEASURES IN PLACE. WILL CONTINUE TO MONITOR
[2020-08-13] MEDS: REMDESIVIR (EUA) 100 MG in NACL 0.9% 100 ML IV SCH (18:55)
--- NOTE | 2020-08-13 19:11 | NUR ---
ADMINISTERED SCHED MED PRESCRIBED PER MD ORDER. PT TOLERATED WELL. MEDICATION EDUCATION EDUCATION PERFORMED. PT VERBALIZED UNDERSTANDING. SAFETY MEASURES IN PLACE. WILL CONTINUE TO MONITOR
--- NOTE | 2020-08-13 19:30 | NUR ---
ENDORSED TO NIGHTSHIFT NURSE FOR CONTINUITY OF CARE. PT IS STABLE
--- NOTE | 2020-08-13 19:31 | NUR ---
RECEIVED REPORT FROM DAY SHIFT NURSE. PT IN BED WITH HOB ELEVATED. PT AAOX3-4, ABLE TO MAKE NEEDS KNOWN. PT ON O2 4LPM/NC. PT NOT IN DISTRESS. DROPLET PRECAUTIONS OBSERVED. ABDOMEN IS SOFT AND NON-TENDER, ACTIVE BOWEL SOUNDS NOTED. SKIN IS WARM, DRY, AND INTACT. PT WITH IV ACCESS ON RIGHT AC G22 PATENT AND INTACT, TKO. PT DENIES ANY PAIN OR DISCOMFORT AT THIS TIME. NO REQUESTS MADE. PT KEPT COMFORTABLE. SAFETY MEASURES IN PLACE. CALL LIGHT WITHIN REACH. WILL CONTINUE TO MONITOR.
[2020-08-13 20:00] VITALS: BP 114/61
--- NOTE | 2020-08-13 21:37 | NUR ---
VS STABLE. SCHEDULED MEDS GIVEN ORDERED. PT NOT IN DISTRESS. O2 IN PLACE. DENIES ANY PAIN OR DISCOMFORT AT THIS TIME. NO REQUESTS MADE. PT KEPT COMFORTABLE. SAFETY MEASURES IN PLACE. CALL LIGHT WITHIN REACH. WILL CONTINUE TO MONITOR.
--- NOTE | 2020-08-13 22:21 | NUR ---
ROUNDS MADE. PT IN BED WATCHING TV. NO S/SX OF DISTRESS NOTED. O2 IN PLACE. WILL CONTINUE TO MONITOR.
--- NOTE | 2020-08-14 00:07 | NUR ---
PT ASLEEP WITH HOB ELEVATED O2 4LPM/NC IN PLACE. PT NOT IN DISTRESS. NO S/SX OF PAIN OR DISCOMFORT NOTED. SAFETY MEASURES IN PLACE. CALL LIGHT WITHIN REACH. WILL CONTINUE TO MONITOR.
--- NOTE | 2020-08-14 02:12 | NUR ---
ASLEEP. O2 IN PLACE. VISIBLE CHEST RISE AND FALL NOTED. NO S/SX OF DISTRESS NOTED. PT KEPT COMFORTABLE. SAFETY MEASURES IN PLACE, CALL LIGHT WITHIN REACH. WILL CONTINUE TO MONITOR.
[2020-08-14 04:00] VITALS: BP 107/53
--- NOTE | 2020-08-14 04:11 | NUR ---
VS STABLE. PT IN BED WITH HOB ELEVATED. O2 IN PLACE. PT NOT IN DISTRESS. DENIES ANY PAIN OR DISCOMFORT. NO REQUESTS MADE. SAFETY MEASURES IN PLACE. CALL LIGHT WITHIN REACH. WILL CONTINUE TO MONITOR.
[2020-08-14] MEDS: BLOOD GLUCOSE MONITORING 1 DEV DEV FS SCH ×4 (06:40→22:45)
--- NOTE | 2020-08-14 06:40 | NUR ---
BLOOD SUGAR 141. NO INSULIN COVERAGE NEEDED. PT NOT IN DISTRESS. WILL CONTINUE TO MONITOR.
--- NOTE | 2020-08-14 07:30 | NUR ---
ENDORSED TO DAY SHIFT NURSE FOR CONTINUITY OF CARE
[2020-08-14 08:00] VITALS: BP 110/53
[2020-08-14 09:24] LABS: PROTHROMBIN TIME 11.5 secs (10.8-13.4)
[2020-08-14 09:35] LABS: ALBUMIN 2.6 g/dL (3.4-5.0); ANION GAP 12.7 (8-16); ASPARTATE AMINOTRANSFERASE 29 U/L (15-37); CHLORIDE 102 mmol/L (98-107); CREATININE 0.4 mg/dL (0.6-1.3); GLUCOSE 129 mg/dL (74-106); MAGNESIUM 1.7 mg/dL (1.8-2.4); POTASSIUM 3.7 mmol/L (3.5-5.1); SODIUM SERUM 137 mmol/L (136-145); TOTAL BILIRUBIN 0.3 mg/dL (0.0-1.0); UREA NITROGEN, BLOOD 19 mg/dL (7-18)
[2020-08-14 10:02] LABS: BASOPHILS % (AUTO) 0.1 % (0.0-2.0); HEMATOCRIT 32.5 % (36-48); LYMPHOCYTES # (AUTO) 1.2 K/uL (2.5-16.5); LYMPHOCYTES % (AUTO) 21.3 % (20.5-51.1); MEAN CORPUSCULAR HEMOGLOBIN 29 pg (27-31); MEAN CORPUSCULAR HGB CONC 34 g/dL (33-37); MONOCYTES # (AUTO) 0.4 K/uL (0.8-1.0); MONOCYTES % (AUTO) 6.9 % (1.7-9.3); NEUTROPHILS # (AUTO) 4.1 K/uL (1.8-7.7); NEUTROPHILS % (AUTO) 71.7 % (42.2-75.2); PLATELET COUNT (AUTO) 218 K/uL (140-450); RED BLOOD CELL COUNT(AUTO) 3.82 MIL/uL (4.20-5.40); RED CELL DISTRIBUTION WIDTH 13.9 % (11.6-13.7); WHITE BLOOD COUNT (AUTO) 5.7 K/uL (4.8-10.8)
[2020-08-14] MEDS: PANTOPRAZOLE 40 MG INJ VIAL IVP SCH (10:31)
[2020-08-14] MEDS: METOPROLOL 25 MG TAB PO SCH ×2 (10:31→21:00)
[2020-08-14] MEDS: DOCUSATE SODIUM 100 MG GELCAP PO SCH (10:31)
[2020-08-14] MEDS: ASCORBIC ACID 500 MG TAB PO SCH ×2 (10:32→21:40)
[2020-08-14] MEDS: ZINC SULF 220 MG CAP PO SCH ×2 (10:32→21:40)
[2020-08-14] MEDS: DEXAMETHASONE 4 MG/ML VIAL IVP SCH (10:34)
[2020-08-14] MEDS: ENOXAPARIN 80 MG/0.8 ML SYR SUBQ SCH ×2 (10:35→21:43)
[2020-08-14 16:00] VITALS: BP 120/61
--- NOTE | 2020-08-14 16:23 | NUR ---
08/14/2020 RD INITIAL ASSESSMENT COMPLETED PLEASE REFER TO NUTRITION ASSESSMENT UNDER CARE ACTIVITY FOR ESTIMATED NUTRITIONAL NEEDS. CONTINUE CURRENT DIET ORDERED PT BMI 49.3, DUE TO CURRENT MEDICAL STATUS, WEIGHT LOSS AND/OR DECREASED KCALS IS NOT AN APPROPRIATE GOAL AT THIS TIME, RECOMMENDED ENERGY NEEDS BASED ON WEIGHT MAINTENANCE RD TO FOLLOW-UP IN 3-5 DAYS PATIENT IS MODERATE RISK. CON AGUILERA, RD
--- NOTE | 2020-08-14 19:28 | NUR ---
RECEIVED PT AAOX4 , NID - O2 SAT WNL - W/ 15LPM/ OXIMIZER . DENIES ANY P[AIN . IV SITE INTACT AND PATENT . SAFETY MEASURES IN PLACE - FALL RISK - PT HX POLIO . PLAN OF ACRE DISCUSSED AND VERBALIZE UNDERSTANDING . PT JUST GOT 1 U FFP - NO BT REACTION NOTED AT THIS TIME . WILL CONT. TO MONITOR.
[2020-08-14 20:00] VITALS: BP 126/68
[2020-08-14] MEDS ORDERED: CRUSHER, PILL MC ONE (21:24)
[2020-08-14] MEDS: REMDESIVIR (EUA) 100 MG in NACL 0.9% 100 ML IV SCH (21:39)
[2020-08-14] MEDS: INSULIN LISPRO SLIDING SCALE 100 UNITS/ML VIAL SUBQ PRN (23:03)
--- NOTE | 2020-08-15 | NUR ---
MADE ROUNDS , NO S/SX OF ACUTE DISTRESS NOTED - O2 SAT WNL
--- NOTE | 2020-08-15 02:00 | NUR ---
SLEEPING - O2 SAT WNL .
[2020-08-15 04:00] VITALS: BP 123/62
--- NOTE | 2020-08-15 04:00 | NUR ---
O2 SAT WNL . NO S/SX OF ACUTE DISTRESS NOTED
--- NOTE | 2020-08-15 06:00 | NUR ---
PT HAS 1 MODERATE BM - SEMI WATERY - WILL ENDORSE TO AM TO WACTH OUT FOR THE PROGRESS OF WATERY BM OR DIARRHREA - PT IS ON TKO - IVF - WILL ENDORSE.
[2020-08-15] MEDS: BLOOD GLUCOSE MONITORING 1 DEV DEV FS SCH ×4 (06:59→20:42)
--- NOTE | 2020-08-15 07:38 | NUR ---
ENDORSED - PT - STABLE
[2020-08-15 08:00] VITALS: BP 123/68
[2020-08-15] MEDS: PANTOPRAZOLE 40 MG INJ VIAL IVP SCH (09:47)
[2020-08-15] MEDS: DOCUSATE SODIUM 100 MG GELCAP PO SCH (09:47)
[2020-08-15] MEDS: ASCORBIC ACID 500 MG TAB PO SCH ×2 (09:47→20:32)
[2020-08-15] MEDS: DEXAMETHASONE 4 MG/ML VIAL IVP SCH (09:47)
[2020-08-15] MEDS: METOPROLOL 25 MG TAB PO SCH ×2 (09:48→20:32)
[2020-08-15 09:58] LABS: ALBUMIN 2.7 g/dL (3.4-5.0); ANION GAP 10.4 (8-16); ASPARTATE AMINOTRANSFERASE 33 U/L (15-37); CARBON DIOXIDE 26.2 mmol/L (21-32); CHLORIDE 100 mmol/L (98-107); CREATININE 0.4 mg/dL (0.6-1.3); GLUCOSE 139 mg/dL (74-106); POTASSIUM 3.6 mmol/L (3.5-5.1); SODIUM SERUM 133 mmol/L (136-145); TOTAL BILIRUBIN 0.4 mg/dL (0.0-1.0); UREA NITROGEN, BLOOD 15 mg/dL (7-18)
--- NOTE | 2020-08-15 10:01 | NUR ---
SCHEDULED MEDICATIONS DUE GIVEN. WILL CONTINUE TO MONITOR.
[2020-08-15] MEDS: ENOXAPARIN 80 MG/0.8 ML SYR SUBQ SCH ×2 (11:24→20:31)
[2020-08-15] MEDS: ZINC SULF 220 MG CAP PO SCH ×2 (11:25→20:31)
--- NOTE | 2020-08-15 11:25 | NUR ---
SCHEDULED MEDICATIONS DUE GIVEN. WILL CONTINUE TO MONITOR.
[2020-08-15] MEDS: INSULIN LISPRO SLIDING SCALE 100 UNITS/ML VIAL SUBQ PRN ×3 (13:05→20:42)
--- NOTE | 2020-08-15 13:06 | NUR ---
SCHEDULED MEDICATIONS DUE GIVEN. WILL CONTINUE TO MONITOR.
[2020-08-15 16:00] VITALS: BP 105/65
--- NOTE | 2020-08-15 17:57 | NUR ---
SCHEDULED MEDICATIONS DUE GIVEN. WILL CONTINUE TO MONITOR.
[2020-08-15] MEDS: REMDESIVIR (EUA) 100 MG in NACL 0.9% 100 ML IV SCH (18:20)
--- NOTE | 2020-08-15 18:20 | NUR ---
SCHEDULED MEDICATIONS DUE GIVEN. WILL CONTINUE TO MONITOR.
--- NOTE | 2020-08-15 19:20 | NUR ---
RECEIVED BEDSIDE REPORT FROM DAY SHIFT NURSE. PATIENT IS AWAKE, ALERT, AND COOPERATIVE. RESPIRATION EVEN UNLABORED ON 15L OXYMIZER. NO DISTRESS NOTED. SKIN IS WARM AND DRY. IV PATENT AND INTACT. PLAN OF CARE WAS DISCUSSED. ALL SAFETY MEASURES IN PLACE. BED IS AT LOW POSITION. CALL LIGHT WITHIN REACH. WILL CONTINUE TO MONITOR.
--- NOTE | 2020-08-15 19:31 | NUR ---
GAVE REPORT TO PROSTHETICS LAB TECHNICIAN NURSE FOR CONTINUITY OF CARE. PATIENT IN STABLE CONDITION.
[2020-08-15 20:00] VITALS: BP 92/51
--- NOTE | 2020-08-15 20:35 | NUR ---
ALL SCHEDULED MEDS WERE GIVEN PER ORDER. NO ASE NOTED. VITALS WERE TAKEN. WILL CONTINUE TO MONITOR.
--- NOTE | 2020-08-15 21:52 | NUR ---
INSTRUCT PATIENT NOT TO PUT HER EARING AID IN THE FOOD TRAY. VERBALIZE UNDERSTANDING WILL CONTINUE TO MONITOR
--- NOTE | 2020-08-15 23:24 | NUR ---
CHECKED PATIENT. PATIENT SLEEPING RESPIRATION EVEN UNLABORED ON 15L OXIMIZER. NO DISTRESS NOTED.
--- NOTE | 2020-08-16 00:01 | NUR ---
FOLLOW UP WITH LAB REGARDING PLASMA. PER LAB THERE'S NO PLASMA AVAILABLE FOR THIS PATIENT.
--- NOTE | 2020-08-16 01:20 | NUR ---
CALLED LAB TO FOLLOW UP WITH THE PLASMA ORDER. PER LAB PLASMA WILL BE AVAILABLE IN 4-7 DAYS
--- NOTE | 2020-08-16 02:53 | NUR ---
ROUNDS MADE. PATIENT SLEEPING RESPIRATION EVEN UNLABORED ON 15L OXYMIZER. NO DISTRESS NOTED. WILL CONTINUE TO MONITOR
[2020-08-16 04:00] VITALS: BP 99/68
--- NOTE | 2020-08-16 05:00 | NUR ---
FOUND PATIENT WITH A O2 OF 80%. ASSESSED PATIENT. NO IMPROVEMENT WITH O2. DENIES ANY SOB OR DISCOMFORT. PAGED RT. WILL CONTINUE TO MONITOR.
--- NOTE | 2020-08-16 05:12 | NUR ---
RT AT BEDSIDE. PATIENT PLACED ON 15L NON-REBREATHER MASK AND IT SATING 94%. WILL CONTINUE TO MONITOR.
--- NOTE | 2020-08-16 05:14 | NUR ---
PT PLACED ON NRB SHE DESAT TO LOW 80s/HIGH 70s PT TOLERATING WELL [place] PL[employer] ATTENDANT AT BEDSIDE W/ PT CURRENT SPO2 89%
[2020-08-16] MEDS: INSULIN LISPRO SLIDING SCALE 100 UNITS/ML VIAL SUBQ PRN ×3 (06:35→22:05)
[2020-08-16] MEDS: BLOOD GLUCOSE MONITORING 1 DEV DEV FS SCH ×4 (07:34→21:00)
[2020-08-16 08:00] VITALS: BP 124/75
--- NOTE | 2020-08-16 08:15 | NUR ---
PROVIDED PATIENT BREAKFAST TRAY.
[2020-08-16] MEDS: ASCORBIC ACID 500 MG TAB PO SCH ×2 (09:21→21:43)
[2020-08-16] MEDS: DOCUSATE SODIUM 100 MG GELCAP PO SCH (09:21)
[2020-08-16] MEDS: PANTOPRAZOLE 40 MG INJ VIAL IVP SCH (09:22)
[2020-08-16] MEDS: METOPROLOL 25 MG TAB PO SCH ×2 (09:22→21:00)
[2020-08-16] MEDS: DEXAMETHASONE 4 MG/ML VIAL IVP SCH (09:22)
[2020-08-16] MEDS: ZINC SULF 220 MG CAP PO SCH ×2 (09:22→21:44)
[2020-08-16] MEDS: ENOXAPARIN 80 MG/0.8 ML SYR SUBQ SCH ×2 (09:23→21:53)
--- NOTE | 2020-08-16 10:21 | NUR ---
MADE ROUNDS. PATIENT IS WATCHING TV NO DISTRESS NOTED. WILL CONTINUE TO MONITOR
--- NOTE | 2020-08-16 11:37 | NUR ---
ENDORSED PATIENT TO [facility] FOR CONTINUITY OF CARE.
[2020-08-16 16:00] VITALS: BP 99/60
--- NOTE | 2020-08-16 19:05 | NUR ---
NAHID. REPORT FROM HAYLEY LEE. PATIENT IS RESTING IN BED, AWAKE, A/OX4. RESPIRATION EVEN AND UNLABORED. ON 15 LPM NON-REBREATHER MASK, 02 SAT- 92%. SKIN COLOR NORMAL PER ETHNICITY. SAFETY MEASURES ENFORCED. BED IN THE LOWEST POSITION, CALL LIGHT IN REACH. MEDICATIONS FOR THE NIGHT DISCUSSED. VERBALIZED UNDERSTANDING. DENIES PAIN ,0/10.
[2020-08-16 20:00] VITALS: BP 91/45
--- NOTE | 2020-08-16 21:00 | NUR ---
COMFORTABLE IN BED, NO RESPIRATORY DISTRESS NOTED.
--- NOTE | 2020-08-16 21:45 | NUR ---
MEDICATIONS FOR THE NIGHT GIVEN. SNACK OFFERED BUT REFUSED TO EAT. LEFT ON THE TABLE AND INSTRUCTED TO EAT LATER TO MAINTAIN HER BLOOD SUGAR.`
--- NOTE | 2020-08-17 | NUR ---
COMFORTABLY ASLEEP IN BED.
--- NOTE | 2020-08-17 02:00 | NUR ---
LAYING ON HER LEFT SIDE, ASLEEP. NO SOB NOTED.
[2020-08-17 04:00] VITALS: BP 132/65
--- NOTE | 2020-08-17 04:00 | NUR ---
STILL ASLEEP, 02 SAT - 91% ON 4 LITERS N/C. NO RESPIRATORY DISTRESS NOTED. Addendum: 08/17/20 at 0641 by Susan Allison LVN CORRECTION: PATIENT IS ON 15 L NON REBREATHER MASK NOT ON 02 AT 4 LITERS/C.
[2020-08-17] MEDS: BLOOD GLUCOSE MONITORING 1 DEV DEV FS SCH ×4 (06:37→21:44)
--- NOTE | 2020-08-17 06:40 | NUR ---
BS CHECKED - 136, NO COVERAGE.
--- NOTE | 2020-08-17 07:00 | NUR ---
RESPIRATORY STATUS REMAIN STABLE. WILL ENDORSE TO AM SHIFT NURSE FOR CONTINUITY OF CARE.
--- NOTE | 2020-08-17 07:35 | NUR ---
RECEIVED BEDSIDE REPORT FROM DAY SHIFT NURSE. PATIENT IS ALERT AND ORIENTED X3. RESPIRATIONS ARE EVEN AND UNLABORED. ON 15 L NRB SATING AT 92%. NO S/S OF ACUTE RESPIRATORY DISTRESS NOTED. SKIN IS INTACT, WARM, AND DRY. IV SITE ON RFA 22G. INTACT AND PATENT. PLAN OF CARE WAS DISCUSSED. SAFETY PROTOCOLS IN PLACE. BED IN LOW POSITION AND CALL LIGHT WITHIN REACH. WILL CONTINUE TO MONITOR. Addendum: 08/18/20 at 0806 by Denny Perez RN RN RECEIVED FROM FRAME ALIGNER NURSE.
[2020-08-17 08:00] VITALS: BP 136/73
[2020-08-17] MEDS: ZINC SULF 220 MG CAP PO SCH ×2 (10:40→21:44)
[2020-08-17] MEDS: DEXAMETHASONE 4 MG/ML VIAL IVP SCH (10:40)
[2020-08-17] MEDS: PANTOPRAZOLE 40 MG INJ VIAL IVP SCH (10:40)
[2020-08-17] MEDS: DOCUSATE SODIUM 100 MG GELCAP PO SCH (10:40)
[2020-08-17] MEDS: METOPROLOL 25 MG TAB PO SCH ×2 (10:41→21:44)
[2020-08-17] MEDS: ASCORBIC ACID 500 MG TAB PO SCH ×2 (10:41→21:44)
--- NOTE | 2020-08-17 10:41 | NUR ---
PT WAS GIVEN THE SCHEDULED AM MEDICATIONS NOW, WILL MONITOR PT.
[2020-08-17] MEDS: ENOXAPARIN 100 MG/ML SYR SUBQ SCH ×2 (10:43→21:45)
[2020-08-17] MEDS: INSULIN LISPRO SLIDING SCALE 100 UNITS/ML VIAL SUBQ PRN ×3 (11:17→21:43)
--- NOTE | 2020-08-17 13:15 | NUR ---
PT WAS REPOSITIONED AND WAS CLEANED NOW.
[2020-08-17 16:00] VITALS: BP 130/46
--- NOTE | 2020-08-17 16:40 | NUR ---
PT IS RESTING NOW AND NO SIGN OF DISTRESS NOTED.
[2020-08-17] MEDS ORDERED: POTASSIUM CHLORIDE 40 MEQ, LIDOCAINE MPF 1% 25 MG in NACL 0.9% 250 ML IV ONE (17:40)
--- NOTE | 2020-08-17 17:53 | NUR ---
PT WAS GIVEN INSULIN 6 UNITS ON THE ABDOMEN FOR BLOOD GLUCOSE OF 256, WILL MONITOR PT.
--- NOTE | 2020-08-17 19:35 | NUR ---
ENDORSED TO PIPE INSPECTOR NURSE FOR CONTINUITY CARE. PATIENT IS STABLE
--- NOTE | 2020-08-17 19:35 | NUR ---
RECEIVED PT AAOX4 , NID - O2 SAT WNL W/ NRM AT 12LPM . IV SITE INTACT AND PATENT. SAFETY MEASURES IN PLACE - CALL LIGHT WITHIN REACH . PLAN OF CARE DISCUSSED AND VERBALIZE UNDERSTANDING . WILL CONT. TO MONITOR .
[2020-08-18] VITALS: BP 142/76
--- NOTE | 2020-08-18 | NUR ---
MADE ROUNDS , NO S/SX OF ACUT DISTRESS NOTED
[2020-08-18 04:00] VITALS: BP 134/73
--- NOTE | 2020-08-18 04:00 | NUR ---
O2 SAT WNL . NO S/SX OF ACUTE DISTRESS NOTED
--- NOTE | 2020-08-18 06:00 | NUR ---
NO COMPLAIN MAD . O2 SAT WNL .
[2020-08-18] MEDS: INSULIN LISPRO SLIDING SCALE 100 UNITS/ML VIAL SUBQ PRN ×4 (06:05→20:44)
[2020-08-18] MEDS: BLOOD GLUCOSE MONITORING 1 DEV DEV FS SCH ×5 (06:05→20:45)
--- NOTE | 2020-08-18 07:32 | NUR ---
RECEIVED BEDSIDE REPORT FROM SKILLED NURSING PROFESSIONAL NURSE. PATIENT IS ALERT AND ORIENTED X3. RESPIRATIONS ARE EVEN AND UNLABORED. ON 15 L NRB SATING AT 92%. NO S/S OF ACUTE RESPIRATORY DISTRESS NOTED. SKIN IS INTACT, WARM, AND DRY. IV SITE ON RAC 22G. INTACT AND PATENT. PLAN OF CARE WAS DISCUSSED. SAFETY PROTOCOLS IN PLACE. BED IN LOW POSITION AND CALL LIGHT WITHIN REACH. WILL CONTINUE TO MONITOR.
--- NOTE | 2020-08-18 07:40 | NUR ---
ENDORSED - PT - STABLE
--- NOTE | 2020-08-18 07:45 | NUR ---
RECEIVED BEDSIDE REPORT FROM DAY SHIFT NURSE. PATIENT IS ALERT AND ORIENTED X3. RESPIRATIONS ARE EVEN AND UNLABORED. ON 12L O2 NRB SATURATING AT 92%. NO S/S OF ACUTE RESPIRATORY DISTRESS NOTED. SKIN IS INTACT, WARM, AND DRY. IV SITE ON RFA 22G. INTACT AND PATENT. PLAN OF CARE WAS DISCUSSED. SAFETY PROTOCOLS IN PLACE. BED IN LOW POSITION AND CALL LIGHT WITHIN REACH. WILL CONTINUE TO MONITOR PT.
[2020-08-18 08:00] VITALS: BP 134/64
[2020-08-18 08:25] LABS: BASOPHILS % (AUTO) 0.2 % (0.0-2.0); EOSINOPHILS % (AUTO) 0.2 % (0.0-4.0); HEMOGLOBIN 9.7 g/dL (12.0-16.0); LYMPHOCYTES % (AUTO) 11.7 % (20.5-51.1); MEAN CORPUSCULAR HEMOGLOBIN 29 pg (27-31); MEAN CORPUSCULAR HGB CONC 33 g/dL (33-37); MEAN CORPUSCULAR VOLUME 85.2 fL (80-94); MONOCYTES # (AUTO) 0.5 K/uL (0.8-1.0); NEUTROPHILS % (AUTO) 81.9 % (42.2-75.2); PLATELET COUNT (AUTO) 326 K/uL (140-450); WHITE BLOOD COUNT (AUTO) 8.6 K/uL (4.8-10.8)
[2020-08-18 09:10] LABS: ALBUMIN 2.2 g/dL (3.4-5.0); ANION GAP 7.4 (8-16); ASPARTATE AMINOTRANSFERASE 23 U/L (15-37); CARBON DIOXIDE 31.4 mmol/L (21-32); CHLORIDE 103 mmol/L (98-107); CREATININE 0.4 mg/dL (0.6-1.3); GLUCOSE 190 mg/dL (74-106); POTASSIUM 3.8 mmol/L (3.5-5.1); SODIUM SERUM 138 mmol/L (136-145); TOTAL BILIRUBIN 0.3 mg/dL (0.0-1.0); UREA NITROGEN, BLOOD 18 mg/dL (7-18)
[2020-08-18] MEDS: ENOXAPARIN 100 MG/ML SYR SUBQ SCH ×2 (09:10→20:48)
[2020-08-18] MEDS: PANTOPRAZOLE 40 MG INJ VIAL IVP SCH (09:10)
[2020-08-18] MEDS: ZINC SULF 220 MG CAP PO SCH ×2 (09:11→20:45)
[2020-08-18] MEDS: DEXAMETHASONE 4 MG/ML VIAL IVP SCH (09:11)
[2020-08-18] MEDS: DOCUSATE SODIUM 100 MG GELCAP PO SCH (09:11)
[2020-08-18] MEDS: METOPROLOL 25 MG TAB PO SCH ×2 (09:12→20:47)
[2020-08-18] MEDS: ASCORBIC ACID 500 MG TAB PO SCH ×2 (09:12→20:45)
--- NOTE | 2020-08-18 09:12 | NUR ---
PT WAS GIVEN THE SCHEDULED AM MEDICATIONS NOW, PARAMETERS CHECKED, TOLERATED AND WILL MONITOR PT.
--- NOTE | 2020-08-18 11:30 | NUR ---
BLOOD GLUCOSE CHECK IS 209. INSULIN COVERAGE NEEDED. ADMINISTERED 4 UNITS OF INSULIN SQ PER ORDERED
--- NOTE | 2020-08-18 13:00 | NUR ---
CHECKED ON PATIENT. PATIENT IS AWAKE AND ALERT. NO RESPIRATORY DISTRESS NOTED. WILL CONTINUE TO MONITOR
[2020-08-18 16:00] VITALS: BP 132/71
--- NOTE | 2020-08-18 16:26 | NUR ---
PT WAS GIVEN INSULIN 10 UNITS ON THE ABDOMEN FOR BLOOD GLUCOSE OF 357, WILL MONITOR PT.
--- NOTE | 2020-08-18 19:26 | NUR ---
RECIEVED PT AAOX4 , NID - O2 SAT WNL , W/ O2 AT 6LPM/NC -TOLERATING WELL - O2 SAT 93 TO 95 % . DENIES ANT PAIN , IV SITE INTACT AND PATENT . PLAN OF CARE DISCUSSED AND VERBALIZE UNDERSTANDING . SAFETY MEASURES IN PLACE - CALL LIGHT WITHIN REACH . WILL TEACH HOW TO DO INCENTIVE SPIROMETRY . WILL CONT. TO MONITOR
--- NOTE | 2020-08-18 19:26 | NUR ---
ENDORSED TO CONTRACT MODELER NURSE FOR CONTINUITY OF CARE.
--- NOTE | 2020-08-18 20:54 | NUR ---
PT SEEN AND ASSESSED. FOUND PT ON 6L NASAL CANNULA WITH SPO2 OF 90%. PT IS IN NO RESPIRATORY DISTRESS AT THIS TIME. WILL CONTINUE TO MONITOR PT.
[2020-08-19] VITALS: BP 122/80
--- NOTE | 2020-08-19 | NUR ---
MADE ROUNDS , NO S/SX OF ACUTE DISTRESS NOTED . WILL CONT. TO MONITOR
--- NOTE | 2020-08-19 04:00 | NUR ---
O2 SAT WNL . NO S/SX OF ACUTE DISTRESS NOTED .
--- NOTE | 2020-08-19 06:00 | NUR ---
NO COMPLAIN MADE . RETURN DEMO OF HOW TO USE INCENTIVE SPIROMETRY DONE BY THE PT - LESS 1,000 ONLY - WILL ENDORSE .
[2020-08-19] MEDS: BLOOD GLUCOSE MONITORING 1 DEV DEV FS SCH ×3 (06:40→16:22)
--- NOTE | 2020-08-19 07:40 | NUR ---
RECEIVED REPORT FROM JORGE RN. PT RESTING IN BED WITH EYES CLOSED. SAFETY MEASURES IN PLACE.
--- NOTE | 2020-08-19 07:43 | NUR ---
ENDORSED - PT - STABLE .
[2020-08-19 08:00] VITALS: BP 137/63
[2020-08-19 08:56] LABS: BASOPHILS % (AUTO) 0.3 % (0.0-2.0); EOSINOPHILS # (AUTO) 0.1 K/uL (0-0.4); EOSINOPHILS % (AUTO) 0.9 % (0.0-4.0); HEMATOCRIT 31.7 % (36-48); HEMOGLOBIN 10.4 g/dL (12.0-16.0); LYMPHOCYTES # (AUTO) 1.5 K/uL (2.5-16.5); LYMPHOCYTES % (AUTO) 15.4 % (20.5-51.1); MEAN CORPUSCULAR HEMOGLOBIN 28 pg (27-31); MEAN CORPUSCULAR HGB CONC 33 g/dL (33-37); MEAN CORPUSCULAR VOLUME 84.9 fL (80-94); MONOCYTES # (AUTO) 0.5 K/uL (0.8-1.0); MONOCYTES % (AUTO) 5.1 % (1.7-9.3); NEUTROPHILS # (AUTO) 7.7 K/uL (1.8-7.7); NEUTROPHILS % (AUTO) 78.3 % (42.2-75.2); PLATELET COUNT (AUTO) 361 K/uL (140-450); RED BLOOD CELL COUNT(AUTO) 3.73 MIL/uL (4.20-5.40); RED CELL DISTRIBUTION WIDTH 13.8 % (11.6-13.7); WHITE BLOOD COUNT (AUTO) 9.8 K/uL (4.8-10.8)
[2020-08-19 08:59] LABS: ALBUMIN 2.3 g/dL (3.4-5.0); ASPARTATE AMINOTRANSFERASE 34 U/L (15-37); CARBON DIOXIDE 31.9 mmol/L (21-32); CHLORIDE 102 mmol/L (98-107); CREATININE 0.4 mg/dL (0.6-1.3); GLUCOSE 145 mg/dL (74-106); POTASSIUM 3.9 mmol/L (3.5-5.1); SODIUM SERUM 139 mmol/L (136-145); TOTAL BILIRUBIN 0.5 mg/dL (0.0-1.0); UREA NITROGEN, BLOOD 18 mg/dL (7-18)
--- NOTE | 2020-08-19 09:30 | NUR ---
PT IS AWAKE AND ALERT ORIENTED X 4. IN NO DISTRESS. LUNG SOUNDS DIMINISHED ABD IS ROUND, SOFT AND NONTENDER WITH ACTIVE BS X4. SKIN INTACT PT HAS INTACT AND PATENT IV ACCESS TO RIGHT HAND WITH NO ISSUES. V/S: 98.2, 93, 18, 137/63, 0/10. SPO2 96% ON 5L NC. CALL LIGHT WITHIN REACH, SAFETY MEASURES IN PLACE. WILL CONTINUE WITH POC.
--- NOTE | 2020-08-19 09:38 | NUR ---
08/19/20 RD FOLLOW UP COMPLETED PLEASE REFER TO NUTRITION PROGRESS NOTE UNDER CARE ACTIVITY FOR ESTIMATED NUTRITION NEEDS. RD RECOMMENDATIONS: 1. RECOMMEND CONTINUE CURRENT DIET [facility] BMI 49.3, DUE TO CURRENT MEDICAL STATUS, WEIGHT LOSS AND/OR DECREASED KCALS IS NOT AN APPROPRIATE GOAL AT THIS TIME, RECOMMENDED ENERGY NEEDS BASED ON WEIGHT MAINTENANCE PER KG ABW 2. RD TO FOLLOW-UP IN 3-5 DAYS PATIENT IS MODERATE RISK. BRIAN MCINTOSH MBA, RD
[2020-08-19] MEDS: DOCUSATE SODIUM 100 MG GELCAP PO SCH (09:39)
[2020-08-19] MEDS: ZINC SULF 220 MG CAP PO SCH (09:39)
[2020-08-19] MEDS: ASCORBIC ACID 500 MG TAB PO SCH (09:39)
[2020-08-19] MEDS: PANTOPRAZOLE 40 MG INJ VIAL IVP SCH (09:40)
[2020-08-19] MEDS: METOPROLOL 25 MG TAB PO SCH (09:40)
[2020-08-19] MEDS: DEXAMETHASONE 4 MG/ML VIAL IVP SCH (09:42)
[2020-08-19] MEDS: ENOXAPARIN 100 MG/ML SYR SUBQ SCH (09:44)
--- NOTE | 2020-08-19 11:30 | NUR ---
RECEIVED CALL FROM MANAGER SCIENCE PT IS UP FOR POSSIBLE DISCHARGE. PT HAS OXYGEN AT HOME, WAITING FOR MD ORDER
[2020-08-19] MEDS: INSULIN LISPRO SLIDING SCALE 100 UNITS/ML VIAL SUBQ PRN ×2 (12:07→16:25)
--- NOTE | 2020-08-19 12:33 | NUR ---
PT BS 224 4 UNITS OF HUMALOG GIVEN IN NO DISTRESS. CALL LIGHT WITHIN REACH. PT REPORTING ISSUES WITH HER CELLPHONE UNABLE TO ASSIST WITH SERVICE ISSUE.
--- NOTE | 2020-08-19 14:13 | NUR ---
RESTING IN BED, CALL LIGHT WITHIN REACH WILL CONTINUE TO MONITOR
[2020-08-19] MEDS ORDERED: DEC1 PO (14:17)
[2020-08-19] MEDS ORDERED: ACET-1182 PO (14:17)
[2020-08-19 16:00] VITALS: BP 146/73
--- NOTE | 2020-08-19 16:50 | NUR ---
SPOKE WITH SON AND DAUGHTER BOTH AWARE OF HER DISCHARGE. PT WILL BE DISCHARGED WITH O2 THAT WAS ALREADY DELIVERED HOME. WILL GETTING HER READY FOR DISCHARGE. FAMILY WILL BRING WHEELCHAIR FROM HOME.
[2020-08-19 17:56] VITALS: BP 146/73
--- NOTE | 2020-08-19 18:50 | NUR ---
PT DISCHARGE AT THIS TIME. PT DISCHARGED WITH O2 TANK AND ON PERSONAL WHEELCHAIR. PT WAS GIVEN PRESCRIPTION AND MEDICATION INSTRUCTIONS. PT AWAKE, ALERT ORIENTED X 4. DISCHARGED WITH ALL BELONGINGS.
== END 2020-08-19 18:50 | disposition home or self-care (01) | DRG 137 ==
LOC: MED 19:01 → MMU 23:55 → MTU 08-10 06:59 → OBSVTOIN 08-12 14:39
PROVIDERS: ADMIT Hospitalist; ATTEND Hospitalist
PROC: XW033E5 Introduction of Remdesivir Anti-infective into Peripheral Vein, Percutaneous Approach, New Technology Group 5 (ICD-10-PCS; 2020-08-11)
PROC: XW13325 Transfusion of Convalescent Plasma (Nonautologous) into Peripheral Vein, Percutaneous Approach, New Technology Group 5 (ICD-10-PCS; principal; 2020-08-14)
DX: U07.1 COVID-19 (principal); J12.89 Other viral pneumonia; E44.1 Mild protein-calorie malnutrition; Z68.42 Body mass index [BMI] 45.0-49.9, adult; E83.42 Hypomagnesemia; J96.01 Acute respiratory failure with hypoxia; I10 Essential (primary) hypertension; E11.9 Type 2 diabetes mellitus without complications; E78.5 Hyperlipidemia, unspecified; D68.69 Other thrombophilia; Z99.3 Dependence on wheelchair
CPT/HCPCS: 36415; 71045; 80053; 81003; 82948; 83036; 83735; 83880; 84484; 85025; 85379; 85610; 86140; 86886; 86900; 86901; 87040; 87081; 87086; 93005; 96360; 96361; 99285; C9113; G0378; J0456; J0696; J1100; J1650; J3475; J3480; J7060; P9017

== ENCOUNTER 2021-02-21 11:44 | Outpatient (CLI) | payer MEDICARE, OTHER, SELFPAY ==
[~2021-02-21] VITALS: Ht 142.2 cm; Wt 81.6 kg
[~2021-02-21 11:44] MED LIST: METF500T2 PO; METO25TE2 PO
[2021-02-21] MEDS ORDERED: REGADENOSON 0.4 MG/5 ML SYR IV SCH (14:05)
== END 2021-02-21 21:32 | disposition home or self-care (01) ==
LOC: MCA 11:44
DX: R94.31 Abnormal electrocardiogram [ECG] [EKG] (principal); R06.09 Other forms of dyspnea; R00.2 Palpitations; G82.20 Paraplegia, unspecified
CPT/HCPCS: 93017; A9500; A9502; J2785

== ENCOUNTER 2021-11-15 18:12 | Inpatient (IN) | payer OTHER, MEDICARE, SELFPAY ==
[~2021-11-15] VITALS: Ht 152.4 cm; Wt 74.4 kg
[2021-11-15 18:29] VITALS: BP 118/68
--- NOTE | 2021-11-15 18:35 | NUR ---
[facility] BLS TO ER BED 1
[2021-11-15] MEDS ORDERED: NACL 0.9% 0 ML IV STA (18:55)
[2021-11-15] MEDS ORDERED: BLOOD GLUCOSE MONITORING 1 DEV DEV FS STA (18:55)
--- NOTE | 2021-11-15 19:00 | NUR ---
76 Y/O F ALEJAA PT WAS SENT ONCOLOGIST FOR FEVER 102.7 TRIAGE WAS TIME 100.7 ORAL. NKDA HX-- COLON CA
[2021-11-15 19:10] LABS: BASOPHILS % (AUTO) 0.7 % (0.0-2.0); HEMATOCRIT 34.9 % (36-48); HEMOGLOBIN 11.9 g/dL (12.0-16.0); LYMPHOCYTES # (AUTO) 0.2 K/uL (2.5-16.5); LYMPHOCYTES % (AUTO) 11.2 % (20.5-51.1); MEAN CORPUSCULAR HEMOGLOBIN 31 pg (27-31); MEAN CORPUSCULAR HGB CONC 34 g/dL (33-37); MEAN CORPUSCULAR VOLUME 91.6 fL (80-94); MONOCYTES # (AUTO) 0.1 K/uL (0.8-1.0); MONOCYTES % (AUTO) 4.9 % (1.7-9.3); NEUTROPHILS # (AUTO) 1.8 K/uL (1.8-7.7); NEUTROPHILS % (AUTO) 83.2 % (42.2-75.2); PLATELET COUNT (AUTO) 118 K/uL (140-450); RED BLOOD CELL COUNT(AUTO) 3.81 MIL/uL (4.20-5.40); RED CELL DISTRIBUTION WIDTH 17.8 % (11.6-13.7); WHITE BLOOD COUNT (AUTO) 2.2 K/uL (4.8-10.8)
[2021-11-15] MEDS ORDERED: NACL 0.9% 1,000 ML IV ONE (19:20)
--- NOTE | 2021-11-15 19:22 | NUR ---
report received from susu landin , transfer of care at this time.
--- NOTE | 2021-11-15 19:22 | NUR ---
Pt report given to HAYLEY QUIROGA. Transfer of care at this time.
[2021-11-15 19:39] LABS: ALBUMIN 3.2 g/dL (3.4-5.0); ANION GAP 14.9 (8-16); ASPARTATE AMINOTRANSFERASE 46 U/L (15-37); CARBON DIOXIDE 22.3 mmol/L (21-32); CHLORIDE 98 mmol/L (98-107); CREATININE 0.5 mg/dL (0.6-1.3); GLUCOSE 156 mg/dL (74-106); POTASSIUM 3.2 mmol/L (3.5-5.1); SODIUM SERUM 132 mmol/L (136-145); TOTAL BILIRUBIN 0.7 mg/dL (0.0-1.0); UREA NITROGEN, BLOOD 11 mg/dL (7-18)
[2021-11-15 19:47] LABS: PROTHROMBIN TIME 10.4 secs (10.8-13.4)
[2021-11-15] MEDS ORDERED: POTASSIUM CHLORIDE 10 MEQ TABER PO ONE (19:50)
--- NOTE | 2021-11-15 21:00 | NUR ---
PERICARE PROVIDED FOR PATIENT. ATTACHED PURERILEYCK, TEMP 99.1 AT THIS TIME. PT TOLERATED WELL.
--- NOTE | 2021-11-15 21:15 | NUR ---
PT TAKEN TO CT
[2021-11-15] MEDS ORDERED: VANCOMYCIN 1,000 MG in DEXTROSE 5% 250 ML IV ONE (22:00)
[2021-11-15] MEDS ORDERED: CEFEPIME 1,000 MG in DEXTROSE 5% 50 ML IV ONE (22:00)
--- NOTE | 2021-11-15 22:15 | NUR ---
IVF NOT GIVEN PATIENT STILL IN THE ER.
--- NOTE | 2021-11-15 22:20 | NUR ---
Nava opbtained, and walked to lab.
[2021-11-15] MEDS ORDERED: CEFEPIME 1,000 MG VIAL ONE (22:33)
[2021-11-15 22:50] LABS: APPEARANCE,URINE CLEAR (CLEAR); BILIRUBIN,URINE NEGATIVE (NEGATIVE); BLOOD, URINE NEGATIVE (NEGATIVE); COLOR,URINE YELLOW (YELLOW); LEUKOCYTE ESTERASE ,URINE TRACE (NEGATIVE); NITRITE, URINE NEGATIVE (NEGATIVE); PH,URINE 6.5 (5.0-9.0); UGLUCOSE TRACE (NEGATIVE)
[2021-11-15 23:05] LABS: RBC,URINE 0-5 /HPF (0-5); WBC,URINE 0-5 /HPF (0-5)
[2021-11-15] MEDS: NACL 0.9% 1,000 ML IV SCH (23:15)
[2021-11-15] MEDS ORDERED: MAGNESIUM OXIDE 400 MG TAB PO PRN (23:15)
[2021-11-15] MEDS ORDERED: MAG SULF 2000 MG/WATER PREMIX 50 ML IV PRN (23:15)
[2021-11-15] MEDS ORDERED: KCL 20 MEQ/WATER INJ PREMIX 200 ML IV PRN (23:15)
[2021-11-15] MEDS ORDERED: HYDROcodone/APAP 5/325 MG 1 TAB TAB PO PRN (23:15)
[2021-11-15] MEDS ORDERED: MORPHINE SULFATE 4 MG/ML SYR IVP PRN (23:15)
[2021-11-15] MEDS ORDERED: ONDANSETRON 4 MG/2 ML VIAL IVP PRN (23:15)
[2021-11-15] MEDS ORDERED: ACETAMINOPHEN 325 MG TAB PO PRN (23:15)
[2021-11-15] MEDS ORDERED: DEXTROSE 50% 50 ML SYR IVP PRN (23:20)
--- NOTE | 2021-11-15 23:22 | NUR ---
Patient appears to be resting comfortably in bed. Vital Signs within normal limits. Respirations even and unlabored.
[2021-11-15] MEDS ORDERED: VANCOMYCIN 1,000 MG VIAL ONE (23:26)
[2021-11-15] MEDS ORDERED: DOCU50LI8 GT (23:51)
[2021-11-15] MEDS ORDERED: METF-350 PO (23:51)
[2021-11-15] MEDS ORDERED: APIX2.5 PO (23:51)
--- NOTE | 2021-11-15 23:55 | NUR ---
Patient will be admitted to care of dr. mcdowell. Admited to telemetry. Will go to [id number]. Belongings list completed. Report to ramsey landin.
--- NOTE | 2021-11-16 00:30 | NUR ---
PATIENT WAS BROUGHT TO MST UNIT FROM ER AAOX4. NO SOB ON ROOM AIR. RESPIRATION EVEN UNLABORED. ALL SAFETY PRECAUTIONS ARE IN PLACE. CALL LIGHT WITHIN REACH. MRSA SCREENING DONE. SKIN INTACT. BOWEL SOUND PRESENT IN ALL 4 QUADRANT. WILL CONTINUE TO MONITOR PATIENT.
[2021-11-16] MEDS: NACL 0.9% 1,000 ML IV SCH ×2 (00:58→12:41)
[2021-11-16 04:00] VITALS: BP 119/51
[2021-11-16] MEDS ORDERED: CEFEPIME 2,000 MG VIAL IV ONE (04:53)
[2021-11-16] MEDS ORDERED: CEFEPIME 2,000 MG in DEXTROSE 5% 100 ML IV SCH (05:00)
--- NOTE | 2021-11-16 05:06 | NUR ---
SCHEDULED MEDICATION ADMINISTERED.
[2021-11-16 05:56] LABS: ALBUMIN 2.8 g/dL (3.4-5.0); ANION GAP 12.9 (8-16); ASPARTATE AMINOTRANSFERASE 42 U/L (15-37); CARBON DIOXIDE 22.5 mmol/L (21-32); CHLORIDE 106 mmol/L (98-107); CREATININE 0.4 mg/dL (0.6-1.3); GLUCOSE 99 mg/dL (74-106); MAGNESIUM 1.8 mg/dL (1.8-2.4); POTASSIUM 3.4 mmol/L (3.5-5.1); SODIUM SERUM 138 mmol/L (136-145); TOTAL BILIRUBIN 0.6 mg/dL (0.0-1.0); UREA NITROGEN, BLOOD 8 mg/dL (7-18)
[2021-11-16 06:09] LABS: BASOPHILS % (AUTO) 0.5 % (0.0-2.0); EOSINOPHILS % (AUTO) 0.8 % (0.0-4.0); HEMATOCRIT 35.7 % (36-48); HEMOGLOBIN 12.1 g/dL (12.0-16.0); LYMPHOCYTES # (AUTO) 0.8 K/uL (2.5-16.5); LYMPHOCYTES % (AUTO) 32.6 % (20.5-51.1); MEAN CORPUSCULAR HEMOGLOBIN 32 pg (27-31); MEAN CORPUSCULAR HGB CONC 34 g/dL (33-37); MEAN CORPUSCULAR VOLUME 92.9 fL (80-94); MONOCYTES # (AUTO) 0.3 K/uL (0.8-1.0); MONOCYTES % (AUTO) 10.3 % (1.7-9.3); NEUTROPHILS # (AUTO) 1.4 K/uL (1.8-7.7); NEUTROPHILS % (AUTO) 55.8 % (42.2-75.2); PLATELET COUNT (AUTO) 98 K/uL (140-450); RED BLOOD CELL COUNT(AUTO) 3.84 MIL/uL (4.20-5.40); RED CELL DISTRIBUTION WIDTH 18.3 % (11.6-13.7); WHITE BLOOD COUNT (AUTO) 2.5 K/uL (4.8-10.8)
[2021-11-16] MEDS: BLOOD GLUCOSE MONITORING 1 DEV DEV FS SCH ×4 (06:37→20:56)
--- NOTE | 2021-11-16 07:20 | NUR ---
ENDORSED TO AM NURSE FOR CONTINUITY OF CARE. PT IN STABLE CONDITION.
--- NOTE | 2021-11-16 07:53 | NUR ---
RECEIVED PATIENT, AOX4, GERMAN SPEAKING, SINUS RHYTHM, RESPIRATIONS EVEN AND UNLABORED ON ROOM AIR. VITAL SIGNS STABLE. AFEBRILE AT THIS TIME. PATIENT DENIES PAIN. INCONTINENT OF BOWEL AND BLADDER, PT HAD ONE LOOSE STOOL AND CLEAR YELLOW URINE. IV FLUIDS INFUSING, REPOSITIONED PATIENT, SKIN IS CLEAN DRY AND INTACT. UPDATED PT ON PLAN OF CARE.
[2021-11-16 08:00] VITALS: BP 113/62
[2021-11-16] MEDS: POTASSIUM CHLORIDE 10 MEQ TABER PO PRN (09:16)
[2021-11-16] MEDS: DOCUSATE SODIUM 100 MG GELCAP PO SCH (09:16)
--- NOTE | 2021-11-16 09:30 | NUR ---
PATIENT TOLERATED BREAKFAST WELL WITH NO NAUSEA/VOMITING. UPDATED DAUGHTER ON PLAN OF CARE AND PATIENT STATUS. PT HAD ANOTHER BOWEL MOVEMENT, SMALL AND SOFT. IV FLUIDS INFUSING, REPOSITIONED PATIENT ON SIDE.
--- NOTE | 2021-11-16 10:23 | NUR ---
PATIENT HAS BEEN SCREENED AND CATEGORIZED LOW NUTRITION RISK. PATIENT WILL BE SEEN WITHIN 7 DAYS OF ADMISSION. 11/22/[address]
[2021-11-16 12:00] VITALS: BP 113/53
--- NOTE | 2021-11-16 12:05 | NUR ---
PATIENT REMAINS AFEBRILE, VITAL SIGNS STABLE. IV FLUIDS ARE INFUSING. TOLERATING LUNCH WELL. CLEAR AND YELLOW URINE OUTPUT VIA PUREWICK. SKIN IS CLEAN DRY INTACT. WILL CONTINUE TO MONITOR.
--- NOTE | 2021-11-16 12:26 | NUR ---
DC [age] YRS OLD FEMALE PATIENT WAS ADMITTED FROM HOME WITH A DX OF NEUTROPENIC FEVER. PATIENT HAS A HX OF DM, HTN AND COLON CANCER ON CHEMO AT [place]. RECENT CHEMO LAST MONTH. CXR SHOWED MILD BIBASAL ATELECTASIS SUGGESTED PNEUMONIA AND RIGHT CHEST PORT-A-CATH. RAPID COVID TEST NEGATIVE. BLOOD AND URINE CULTURE PENDING. ADMINISTERED IVF, IV ABX MEROPENEM. CONSULTED WITH ID DR VALLEJO. DC PLAN TO GO HOME WHEN STABLE. CM TO FOLLOW.
[2021-11-16] MEDS: MEROPENEM 1,000 MG in NACL 0.9% 50 ML IV SCH ×2 (12:39→21:23)
--- NOTE | 2021-11-16 15:04 | NUR ---
PATIENTS DAUGHTER AT BEDSIDE, SPOKE TO DR RIVERS, PATIENT AND DAUGHTER ARE AWARE OF PLAN OF CARE.
[2021-11-16 16:00] VITALS: BP 139/81
--- NOTE | 2021-11-16 18:45 | NUR ---
PATIENT EATING DINNER, DENIES PAIN, HAS BEEN AFEBRILE THROUGHOUT THE SHIFT. VITAL SIGNS STABLE. IV FLUIDS INFUSING. WILL ENDORSE TO NIGHT RN.
[2021-11-16 20:00] VITALS: BP 133/84
--- NOTE | 2021-11-16 22:12 | NUR ---
PATIENT WAS GIVEN MEDICATION BY RN. PATIENT HAD A BOWEL MOVEMENT X1 SOFT AND DARK BROWN IN COLOR. URINARY SUCTION CATH WAS REMOVED BECAUSE IT WAS COVERED IN BOWEL MOVEMENT. PATIENT WAS CLEAN AND KEPT DRY. PATIENT WAS ABLE TO ASSIST IN TURNING AND ADJUSTING WHILE IN THE BED. CALL LIGHT IN REACH TO CALL FOR ANY ASSISTANCE OR NURSE.
[2021-11-17] VITALS: BP 133/84
--- NOTE | 2021-11-17 | NUR ---
ROUNDS , NO COMPLAIN MADE . CALL LIGHT WITHIN REACH .
--- NOTE | 2021-11-17 00:41 | NUR ---
PATIENT USED CALL LIGHT TO GET CHANGED. PATIENT URINATED A COPIOUS AMOUNT YELLOW URINE. NURSING GAVE PERINEAL CARE AND KEPT PATIENT CLEAN AND DRY. PLACE BED TO THE LOWEST SETTING CALL LIGHT IN REACH. MONITOR FOR SAFETY.
--- NOTE | 2021-11-17 02:00 | NUR ---
AWAKE , WATCHING TV . NO COMPLAIN MADE . CALL LIGHT WITHIN REACH
[2021-11-17 04:00] VITALS: BP 130/70
--- NOTE | 2021-11-17 04:00 | NUR ---
ROUNDS , NO COMPLAIN MADE
[2021-11-17] MEDS: NACL 0.9% 1,000 ML IV SCH ×2 (05:10→12:27)
[2021-11-17] MEDS: MEROPENEM 1,000 MG in NACL 0.9% 50 ML IV SCH ×3 (05:21→20:21)
[2021-11-17 06:37] LABS: BASOPHILS % (AUTO) 0.3 % (0.0-2.0); EOSINOPHILS # (AUTO) 0.1 K/uL (0-0.4); EOSINOPHILS % (AUTO) 3.2 % (0.0-4.0); HEMATOCRIT 32.3 % (36-48); HEMOGLOBIN 11.1 g/dL (12.0-16.0); LYMPHOCYTES # (AUTO) 0.8 K/uL (2.5-16.5); MEAN CORPUSCULAR HEMOGLOBIN 32 pg (27-31); MEAN CORPUSCULAR HGB CONC 34 g/dL (33-37); MEAN CORPUSCULAR VOLUME 92.6 fL (80-94); MONOCYTES # (AUTO) 0.3 K/uL (0.8-1.0); MONOCYTES % (AUTO) 12.2 % (1.7-9.3); NEUTROPHILS % (AUTO) 47.3 % (42.2-75.2); PLATELET COUNT (AUTO) 87 K/uL (140-450); RED BLOOD CELL COUNT(AUTO) 3.49 MIL/uL (4.20-5.40)
[2021-11-17 07:01] LABS: WHITE BLOOD COUNT (AUTO) 2.2 K/uL (4.8-10.8)
[2021-11-17] MEDS: BLOOD GLUCOSE MONITORING 1 DEV DEV FS SCH ×4 (07:24→20:21)
--- NOTE | 2021-11-17 07:30 | NUR ---
ENDORSED - PT - STABLE - I ENDORSED TO HENRY LEVY - I RELAYED DR. NASH WBC 2.2 - SHE HAVE TO FF UP IF THERE IS FURTHER ORDERS.
--- NOTE | 2021-11-17 07:31 | NUR ---
RECEIVED REPORT FROM WELDING SPECIALIST NURSE FOR CONTINUITY OF CARE. PT IS IN BED SLEEPING AT THIS TIME. RESPIRATIONS ARE EVEN AND UNLABORED ON ROOM AIR. PT IS ALERT AND ORIENTATED X4. ABLE TO VERBALIZE NEEDS TO STAFF. PT HAS IV TO R AC, 18G, IV IS INTACT AND PATENT. SKIN IS WARM, DRY, AND INTACT. CALL LIGHT WITHIN REACH. ALL SAFETY MEASURES IN PLACE. WILL CONTINUE TO MONITOR.
[2021-11-17 08:00] VITALS: BP 140/76
[2021-11-17] MEDS: DOCUSATE SODIUM 100 MG GELCAP PO SCH (08:37)
--- NOTE | 2021-11-17 08:40 | NUR ---
ADMINISTERED ALL SCHEDULED MEDICATIONS. EDUCATED PT REGARDING MEDS ADMINISTERED. ANSWERED ALL QUESTIONS. PT VERBALIZED UNDERSTANDING. CALL LIGHT WITHIN REACH. ALL SAFETY MEASURES IN PLACE. WILL CONTINUE TO MONITOR.
[2021-11-17 11:12] LABS: ALBUMIN 2.6 g/dL (3.4-5.0); ANION GAP 17.2 (8-16); ASPARTATE AMINOTRANSFERASE 39 U/L (15-37); CARBON DIOXIDE 18.5 mmol/L (21-32); CHLORIDE 108 mmol/L (98-107); CREATININE 0.3 mg/dL (0.6-1.3); GLUCOSE 97 mg/dL (74-106); MAGNESIUM 1.8 mg/dL (1.8-2.4); POTASSIUM 3.7 mmol/L (3.5-5.1); SODIUM SERUM 140 mmol/L (136-145); TOTAL BILIRUBIN 0.5 mg/dL (0.0-1.0); UREA NITROGEN, BLOOD 6 mg/dL (7-18)
[2021-11-17] MEDS: INSULIN LISPRO SLIDING SCALE 100 UNITS/ML VIAL SUBQ PRN (11:35)
--- NOTE | 2021-11-17 11:35 | NUR ---
PT BLOOD GLUCOSE WAS 192. COVERED WITH 2 UNITS INSULIN PER SLIDING SCALE.
--- NOTE | 2021-11-17 15:02 | NUR ---
DID ROUNDS ON PT. FAMILY AT BEDSIDE. ANSWERED ALL QUESTIONS. PT APPEARS IN GOOD SPIRITS. WILL CONTINUE TO MONITOR.
[2021-11-17 16:00] VITALS: BP 133/63
--- NOTE | 2021-11-17 17:09 | NUR ---
PT BLOOD GLUCOSE WAS 102. NO INSULIN COVERAGE NEEDED PER SLIDING SCALE.
--- NOTE | 2021-11-17 19:20 | NUR ---
ENDORSED PT TO AUTO BODY SERVICE MECHANIC NURSE FOR CONTINUITY OF CARE. PT IS STABLE.
--- NOTE | 2021-11-17 20:20 | NUR ---
PATIENT IS AAOX4, ON ROOM AIR. NO SOB NOTED. SAFETY MEASURES IN PLACE. CALL LIGHT WITHIN REACH. NO COMPLAINTS OF PAIN.
--- NOTE | 2021-11-17 20:21 | NUR ---
BLOOD SUGAR WAS 133, NO INSULIN COVERAGE NEEDED.
--- NOTE | 2021-11-17 20:21 | NUR ---
SCHEDULED MEDICATION DUE ADMINISTERED.
[2021-11-18] VITALS: BP 119/64
[2021-11-18] MEDS: NACL 0.9% 1,000 ML IV SCH ×2 (01:15→13:45)
--- NOTE | 2021-11-18 02:54 | NUR ---
MADE ROUNDS, PATIENT IS SLEEPING. OBSERVED CHEST RISE AND FALL, UNLABORED BREATHING. CALL LIGHT WITHIN REACH.
[2021-11-18] MEDS: MEROPENEM 1,000 MG in NACL 0.9% 50 ML IV SCH ×2 (04:49→13:17)
[2021-11-18 05:55] LABS: BASOPHILS % (AUTO) 0.3 % (0.0-2.0); EOSINOPHILS # (AUTO) 0.1 K/uL (0-0.4); EOSINOPHILS % (AUTO) 2.4 % (0.0-4.0); HEMATOCRIT 31.7 % (36-48); LYMPHOCYTES # (AUTO) 1.3 K/uL (2.5-16.5); LYMPHOCYTES % (AUTO) 41.8 % (20.5-51.1); MEAN CORPUSCULAR HEMOGLOBIN 32 pg (27-31); MEAN CORPUSCULAR HGB CONC 35 g/dL (33-37); MEAN CORPUSCULAR VOLUME 91.7 fL (80-94); MONOCYTES # (AUTO) 0.4 K/uL (0.8-1.0); MONOCYTES % (AUTO) 12.4 % (1.7-9.3); NEUTROPHILS # (AUTO) 1.3 K/uL (1.8-7.7); NEUTROPHILS % (AUTO) 43.1 % (42.2-75.2); PLATELET COUNT (AUTO) 94 K/uL (140-450); RED BLOOD CELL COUNT(AUTO) 3.45 MIL/uL (4.20-5.40); RED CELL DISTRIBUTION WIDTH 18.3 % (11.6-13.7)
[2021-11-18 06:08] LABS: ANION GAP 14.5 (8-16); ASPARTATE AMINOTRANSFERASE 36 U/L (15-37); CARBON DIOXIDE 20.8 mmol/L (21-32); CHLORIDE 106 mmol/L (98-107); CREATININE 0.3 mg/dL (0.6-1.3); GLUCOSE 97 mg/dL (74-106); MAGNESIUM 1.8 mg/dL (1.8-2.4); POTASSIUM 3.3 mmol/L (3.5-5.1); SODIUM SERUM 138 mmol/L (136-145); TOTAL BILIRUBIN 0.4 mg/dL (0.0-1.0); UREA NITROGEN, BLOOD 6 mg/dL (7-18)
[2021-11-18] MEDS: BLOOD GLUCOSE MONITORING 1 DEV DEV FS SCH ×2 (06:46→11:35)
--- NOTE | 2021-11-18 06:47 | NUR ---
BLOOD SUGAR WAS 109, NO INSULIN COVERAGE NEEDED.
--- NOTE | 2021-11-18 07:30 | NUR ---
ENDORSED PATIENT TO NURSE MORAIMA FOR CONTINUITY OF CARE. PT IS STABLE.
--- NOTE | 2021-11-18 07:31 | NUR ---
RECEIVED ENDORSEMENT FROM HUA HARDY FOR CONTINUITY OF CARE. PT IS STABLE IN BED. A&OX4 TURKISH SPEAKING ONLY. VERBALLY RESPONSIVE AND ABLE TO COMMUNICATE NEEDS. DENIES PAIN. ON ROOM AIR. RESPIRATIONS EVEN AND UNLABORED WITH NO APPARENT S/SX OF ACUTE DISTRESS. PATIENT IS BEDBOUND AND INCONTINENT OF VOID AND BM. SKIN IS INTACT. PATIENT'S IV SITE TO THE RAC 18G IS PATENT/INTACT WITH NS INFUSING AT 80 ML/HR. POC UPDATED. ALL SAFETY MEASURES IN PLACE. CALL LIGHT WITHIN REACH. WILL CONTINUE TO MONITOR.
[2021-11-18 08:00] VITALS: BP 123/68
--- NOTE | 2021-11-18 08:51 | NUR ---
ADMINISTERED SCHEDULED MEDICATION PER MD ORDER. TOLERATED WELL. DENIES PAIN. RESPIRATIONS EVEN AND UNLABORED WITH NO APPARENT S/SX OF ACUTE DISTRESS. ALL SAFETY MEASURES IN PLACE. CALL LIGHT WITHIN REACH. WILL CONTINUE TO MONITOR.
[2021-11-18] MEDS: DOCUSATE SODIUM 100 MG GELCAP PO SCH (08:52)
--- NOTE | 2021-11-18 09:34 | NUR ---
PT ENDORSED TO HENRY SEGURA FOR CONTINUITY OF CARE. PT IS STABLE.
--- NOTE | 2021-11-18 09:35 | NUR ---
RECEIVED REPORT FROM MORAIMA SEGURA. ASSUMED CARE FOR PT. RESPIRATIONS ARE EVEN AND UNLABORED. NO SIGNS OF DISTRESS NOTED. CALL LIGHT WITHIN REACH. ALL SAFETY MEASURES IN PLACE. WILL CONTINUE TO MONITOR.
[2021-11-18] MEDS: INSULIN LISPRO SLIDING SCALE 100 UNITS/ML VIAL SUBQ PRN (11:36)
--- NOTE | 2021-11-18 12:55 | NUR ---
DID ROUNDS ON PT. FAMILY AT BEDSIDE. PT IN BED. RESPIRATIONS ARE EVEN AND UNLABORED. NO SIGNS OF DISTRESS NOTED. NO COMPLAINTS OF PAIN OR DISCOMFORT NOTED. UPDATED FAMILY AND PT. ON POC. ANSWERED ALL QUESTIONS. WILL CONTINUE TO MONITOR.
[2021-11-18] MEDS: POTASSIUM CHLORIDE 10 MEQ TABER PO PRN (13:55)
[2021-11-18] MEDS ORDERED: DOCU50LI8 GT (15:35)
[2021-11-18] MEDS ORDERED: CIPR500T4 PO (15:35)
[2021-11-18] MEDS ORDERED: METR-520 PO (15:36)
[2021-11-18 15:45] VITALS: BP 140/73
--- NOTE | 2021-11-18 16:26 | NUR ---
WENT OVER DISCHARGE PAPERWORK WITH PT AND FAMILY. ANSWERED ALL QUESTIONS. PT SIGNED ALL PAPERWORK. REMOVED IV. IV CATHETER INTACT. REMOVED WRIST BAND. ALL BELONGINGS TAKEN UPON DISCHARGE. PT DISCHARGED HOME.
== END 2021-11-18 16:25 | disposition home or self-care (01) | DRG 720 ==
LOC: MED 18:12 → MTU 23:15 → MMU 23:50
PROVIDERS: ADMIT Hospitalist; ATTEND Hospitalist
PROC: 02HV33Z Insertion of Infusion Device into Superior Vena Cava, Percutaneous Approach (ICD-10-PCS; principal; 2021-11-15)
DX: A41.9 Sepsis, unspecified organism (principal); J18.9 Pneumonia, unspecified organism; D69.6 Thrombocytopenia, unspecified; C18.9 Malignant neoplasm of colon, unspecified; I11.9 Hypertensive heart disease without heart failure; E87.1 Hypo-osmolality and hyponatremia; D70.9 Neutropenia, unspecified; E11.9 Type 2 diabetes mellitus without complications; K44.9 Diaphragmatic hernia without obstruction or gangrene; K80.20 Calculus of gallbladder without cholecystitis without obstruction; M41.9 Scoliosis, unspecified; N28.1 Cyst of kidney, acquired; E87.6 Hypokalemia; K62.89 Other specified diseases of anus and rectum; Z20.822 Contact with and (suspected) exposure to COVID-19; Z86.12 Personal history of poliomyelitis; Z90.710 Acquired absence of both cervix and uterus; Z79.01 Long term (current) use of anticoagulants; Z79.84 Long term (current) use of oral hypoglycemic drugs; Z79.899 Other long term (current) drug therapy
CPT/HCPCS: 36415; 36600; 71045; 80053; 81001; 82803; 82948; 83605; 83735; 85025; 85610; 85730; 87040; 87081; 87086; 93005; 96365; 96367; 97110; 97163-GP; 97530; 99285; J0692; J2185; J3370; J7060; Q0092; Q9967

== ENCOUNTER 2023-07-27 23:27 | Inpatient (IN) | payer OTHER, MEDICARE ==
[~2023-07-27] VITALS: Ht 162.6 cm; Wt 117.9 kg
[~2023-07-27 23:27] MED LIST changes: +APIX2.5 PO; +CIPR500T4 PO; +DOCU50LI8 GT; +METF-350 PO; -METF500T2 PO; +METR-520 PO
[2023-07-27 23:37] VITALS: BP 153/80; PULSE 126; RESP 20; TEMP 101.1; O2SAT 96
[2023-07-28] MEDS ORDERED: ACETAMINOPHEN 325 MG TAB PO ONE
[2023-07-28 01:36] LABS: BLOOD GAS BASE EXCESS -1.5 mmol/L (-2.0-2.0); BLOOD GAS HCO3 21.6 mmol/L (22-26); BLOOD GAS PCO2 31.8 mmHg (35-45); BLOOD GAS PH 7.449 (7.35-7.45); BLOOD GAS PO2 71.2 mmHg (75-100)
[2023-07-28 02:28] LABS: BASOPHILS % (AUTO) 0.1 % (0.0-2.0); HEMATOCRIT 38.2 % (36-48); HEMOGLOBIN 13.1 g/dL (12.0-16.0); LYMPHOCYTES # (AUTO) 0.4 K/uL (2.5-16.5); LYMPHOCYTES % (AUTO) 6.5 % (20.5-51.1); MEAN CORPUSCULAR HEMOGLOBIN 30 pg (27-31); MEAN CORPUSCULAR HGB CONC 34 g/dL (33-37); MEAN CORPUSCULAR VOLUME 86.9 fL (80-94); MONOCYTES # (AUTO) 0.3 K/uL (0.8-1.0); MONOCYTES % (AUTO) 3.9 % (1.7-9.3); NEUTROPHILS # (AUTO) 5.9 K/uL (1.8-7.7); PLATELET COUNT (AUTO) 143 K/uL (140-450); RED BLOOD CELL COUNT(AUTO) 4.39 MIL/uL (4.20-5.40); RED CELL DISTRIBUTION WIDTH 14.7 % (11.6-13.7); WHITE BLOOD COUNT (AUTO) 6.6 K/uL (4.8-10.8)
[2023-07-28 02:40] LABS: ALANINE AMINOTRANSFERASE 16 U/L (12-78); ALBUMIN 3.4 g/dL (3.4-5.0); ALKALINE PHOSPHATASE 103 U/L (50-136); ANION GAP 11.8 (8-16); ASPARTATE AMINOTRANSFERASE 19 U/L (15-37); CALCIUM 8.2 mg/dL (8.5-10.1); CARBON DIOXIDE 25.3 mmol/L (21-32); CHLORIDE 99 mmol/L (98-107); CREATININE 0.4 mg/dL (0.6-1.3); GLUCOSE 167 mg/dL (74-106); POTASSIUM 3.1 mmol/L (3.5-5.1); SODIUM SERUM 133 mmol/L (136-145); TOTAL BILIRUBIN 0.5 mg/dL (0.0-1.0); TOTAL PROTEIN, SERUM 7.6 g/dL (6.4-8.2); UREA NITROGEN, BLOOD 8 mg/dL (7-18)
[2023-07-28] MEDS ORDERED: AZITHROMYCIN 500 MG in DEXTROSE 5% 250 ML IV ONE (02:40)
[2023-07-28 02:45] LABS: LACTIC ACID 0.5 mmol/L (0.4-2.0)
[2023-07-28] MEDS ORDERED: AZITHROMYCIN 500 MG INJ VIAL IV ONE (02:45)
[2023-07-28] MEDS ORDERED: cefTRIAXone 1,000 MG VIAL ONE (02:45)
[2023-07-28 02:49] LABS: INR 1.05 (0.8-1.2); PARTIAL THROMBOPLASTIN TIME 28.5 secs (22-35.6)
[2023-07-28 02:53] LABS: FLU A ANTIGEN negative (NEGATIVE); FLU B ANTIGEN negative (NEGATIVE)
[2023-07-28 02:55] LABS: NEUTROPHILS % (AUTO) 89.5 % (42.2-75.2)
[2023-07-28] MEDS ORDERED: MAG SULF 2000 MG/WATER PREMIX 50 ML IV PRN (07:55)
[2023-07-28] MEDS ORDERED: POTASSIUM CHLORIDE 10 MEQ TABER PO PRN (07:55)
[2023-07-28] MEDS ORDERED: HYDROcodone/APAP 5/325 MG 1 TAB TAB PO PRN (07:55)
[2023-07-28] MEDS ORDERED: ONDANSETRON 4 MG/2 ML VIAL IVP PRN (07:55)
[2023-07-28] MEDS ORDERED: KCL 20 MEQ IN 100 mL PREMIX 200 ML IV PRN (07:55)
[2023-07-28] MEDS ORDERED: ZOLPIDEM 5 MG TAB PO PRN (07:55)
[2023-07-28] MEDS ORDERED: POTASSIUM CHL 20 MEQ/NACL 0.9% 1,000 ML IV SCH (07:55)
[2023-07-28] MEDS ORDERED: remdesivir COMMUNICATION ORDER 1 EA MISC MC PRN (07:55)
[2023-07-28] MEDS ORDERED: LORazepam 1 MG TAB PO PRN (07:55)
[2023-07-28] MEDS ORDERED: MAGNESIUM OXIDE 400 MG TAB PO PRN (07:55)
[2023-07-28] MEDS: DOCUSATE SODIUM 100 MG GELCAP PO SCH (10:50)
[2023-07-28] MEDS: REMDESIVIR. 200 MG in NACL 0.9% 100 ML IV SCH ×2 (10:58→11:01)
[2023-07-28] MEDS ORDERED: remdesivir CLINICAL MONITORING 1 EA MISC MC PRN (11:00)
[2023-07-28] MEDS ORDERED: METO25TA PO (15:55)
[2023-07-28] MEDS ORDERED: DOCU-3 PO (16:00)
[2023-07-28] MEDS ORDERED: OMEP20EC11 PO (16:00)
[2023-07-28] MEDS ORDERED: ATOR10TA PO (16:00)
[2023-07-28] MEDS ORDERED: VITAMIND3 (16:00)
[2023-07-28] MEDS: ACETAMINOPHEN 325 MG TAB PO PRN ×2 (18:27→21:32)
[2023-07-28 22:05] LABS: APPEARANCE,URINE HAZY (CLEAR); BILIRUBIN,URINE NEGATIVE (NEGATIVE); BLOOD, URINE TRACE-I (NEGATIVE); COLOR,URINE YELLOW (YELLOW); LEUKOCYTE ESTERASE ,URINE 1+ (NEGATIVE); NITRITE, URINE POSITIVE (NEGATIVE); PROTEIN,URINE 1+ (NEGATIVE); UGLUCOSE 1+ (NEGATIVE); UROBILINOGEN,URINE 0.2 EU/dL (0.2 - 1)
[2023-07-28 22:19] LABS: RBC,URINE 0-5 /HPF (0-5); WBC,URINE 16-25 (MOD) /HPF (0-5)
[2023-07-28 22:20] LABS: BACTERIA,URINE 2+ /HPF (None Seen); FINE GRANULAR CASTS,URINE 0-10 /LPF (None Seen); MUCUS,URINE 1+ /LPF (None Seen); SQUAMOUS EPITHELIAL CELL,UR 0-3 (FEW) /LPF (0-3 (FEW)); TRICHOMONAS,URINE None Seen /HPF (None Seen); WHITE BLOOD CELL CASTS,URINE 0-3 /LPF (None Seen); YEAST,URINE None Seen /HPF (None Seen)
[2023-07-29 07:47] LABS: BASOPHILS % (AUTO) 0.4 % (0.0-2.0); EOSINOPHILS % (AUTO) 0.6 % (0.0-4.0); HEMATOCRIT 37.4 % (36-48); HEMOGLOBIN 13.1 g/dL (12.0-16.0); LYMPHOCYTES # (AUTO) 0.8 K/uL (2.5-16.5); LYMPHOCYTES % (AUTO) 18.5 % (20.5-51.1); MEAN CORPUSCULAR HEMOGLOBIN 31 pg (27-31); MEAN CORPUSCULAR HGB CONC 35 g/dL (33-37); MEAN CORPUSCULAR VOLUME 86.8 fL (80-94); MONOCYTES # (AUTO) 0.4 K/uL (0.8-1.0); NEUTROPHILS # (AUTO) 3.2 K/uL (1.8-7.7); NEUTROPHILS % (AUTO) 71.5 % (42.2-75.2); PLATELET COUNT (AUTO) 144 K/uL (140-450); RED BLOOD CELL COUNT(AUTO) 4.31 MIL/uL (4.20-5.40); RED CELL DISTRIBUTION WIDTH 14.8 % (11.6-13.7); WHITE BLOOD COUNT (AUTO) 4.4 K/uL (4.8-10.8)
[2023-07-29] MEDS ORDERED: OSELTAMIVIR PHOSPHATE 30 MG CAP ONE (07:59)
[2023-07-29 08:03] LABS: ALBUMIN 2.9 g/dL (3.4-5.0); BILIRUBIN,DIRECT 0.1 mg/dL (0.0-0.3); TOTAL BILIRUBIN 0.4 mg/dL (0.0-1.0); TOTAL PROTEIN, SERUM 7.1 g/dL (6.4-8.2)
[2023-07-29] MEDS: DOCUSATE SODIUM 100 MG GELCAP PO SCH (08:05)
[2023-07-29 08:40] LABS: ALANINE AMINOTRANSFERASE 17 U/L (12-78); ALBUMIN 2.9 g/dL (3.4-5.0); ALKALINE PHOSPHATASE 88 U/L (50-136); ANION GAP 16.3 (8-16); ASPARTATE AMINOTRANSFERASE 22 U/L (15-37); CALCIUM 8.3 mg/dL (8.5-10.1); CARBON DIOXIDE 23.1 mmol/L (21-32); CHLORIDE 101 mmol/L (98-107); CREATININE 0.4 mg/dL (0.6-1.3); GLUCOSE 113 mg/dL (74-106); MAGNESIUM 1.8 mg/dL (1.8-2.4); POTASSIUM 3.4 mmol/L (3.5-5.1); SODIUM SERUM 137 mmol/L (136-145); TOTAL BILIRUBIN 0.4 mg/dL (0.0-1.0); UREA NITROGEN, BLOOD 10 mg/dL (7-18)
[2023-07-29] MEDS ORDERED: OSELTAMIVIR PHOSPHATE 30 MG CAP PO SCH (09:00)
[2023-07-29] MEDS: REMDESIVIR. 100 MG in NACL 0.9% 100 ML IV SCH (12:26)
[2023-07-29 17:30] VITALS: RESP 17; O2SAT 94
[2023-07-29 20:00] VITALS: BP 140/69; PULSE 82; PULSE 84; RESP 18; RESP 19; TEMP 98; O2SAT 84; O2SAT 96
[2023-07-29] MEDS: METOPROLOL 25 MG TAB PO SCH (21:03)
[2023-07-30] VITALS: BP 140/69; PULSE 82; RESP 18; TEMP 97.2; O2SAT 82
[2023-07-30 04:00] VITALS: BP 141/67; PULSE 71; PULSE 78; RESP 19; TEMP 97.4; O2SAT 19
[2023-07-30 06:59] LABS: BASOPHILS % (AUTO) 0.2 % (0.0-2.0); EOSINOPHILS # (AUTO) 0.1 K/uL (0-0.4); EOSINOPHILS % (AUTO) 1.8 % (0.0-4.0); HEMATOCRIT 40.6 % (36-48); HEMOGLOBIN 13.8 g/dL (12.0-16.0); LYMPHOCYTES # (AUTO) 1.1 K/uL (2.5-16.5); LYMPHOCYTES % (AUTO) 29.6 % (20.5-51.1); MEAN CORPUSCULAR HEMOGLOBIN 30 pg (27-31); MEAN CORPUSCULAR HGB CONC 34 g/dL (33-37); MEAN CORPUSCULAR VOLUME 88.1 fL (80-94); MONOCYTES # (AUTO) 0.4 K/uL (0.8-1.0); MONOCYTES % (AUTO) 11.3 % (1.7-9.3); NEUTROPHILS # (AUTO) 2.1 K/uL (1.8-7.7); NEUTROPHILS % (AUTO) 57.1 % (42.2-75.2); PLATELET COUNT (AUTO) 169 K/uL (140-450); RED BLOOD CELL COUNT(AUTO) 4.61 MIL/uL (4.20-5.40); RED CELL DISTRIBUTION WIDTH 14.8 % (11.6-13.7); WHITE BLOOD COUNT (AUTO) 3.8 K/uL (4.8-10.8)
[2023-07-30 07:21] LABS: ALANINE AMINOTRANSFERASE 14 U/L (12-78); ALBUMIN 2.9 g/dL (3.4-5.0); ALKALINE PHOSPHATASE 91 U/L (50-136); ASPARTATE AMINOTRANSFERASE 18 U/L (15-37); CALCIUM 8.4 mg/dL (8.5-10.1); CARBON DIOXIDE 26.7 mmol/L (21-32); CHLORIDE 100 mmol/L (98-107); CREATININE 0.3 mg/dL (0.6-1.3); GLUCOSE 107 mg/dL (74-106); MAGNESIUM 1.8 mg/dL (1.8-2.4); POTASSIUM 3.7 mmol/L (3.5-5.1); SODIUM SERUM 136 mmol/L (136-145); TOTAL BILIRUBIN 0.4 mg/dL (0.0-1.0); TOTAL PROTEIN, SERUM 7.1 g/dL (6.4-8.2); UREA NITROGEN, BLOOD 10 mg/dL (7-18)
[2023-07-30 08:00] VITALS: BP 111/53; PULSE 115; PULSE 84; RESP 18; TEMP 89; TEMP 98; O2SAT 84
[2023-07-30 08:12] LABS: BILIRUBIN,DIRECT 0.1 mg/dL (0.0-0.3); TOTAL BILIRUBIN 0.4 mg/dL (0.0-1.0); TOTAL PROTEIN, SERUM 7.4 g/dL (6.4-8.2)
[2023-07-30 08:38] VITALS: PULSE 78; RESP 20; O2SAT 99
[2023-07-30] MEDS ORDERED: ATORVASTATIN 20 MG TAB PO SCH (09:00)
[2023-07-30] MEDS: DOCUSATE SODIUM 100 MG GELCAP PO SCH (09:21)
[2023-07-30] MEDS: METOPROLOL 25 MG TAB PO SCH (09:21)
[2023-07-30] MEDS: REMDESIVIR. 100 MG in NACL 0.9% 100 ML IV SCH (11:04)
[2023-07-30 14:00] VITALS: BP 129/58; PULSE 69; PULSE 76; RESP 18; TEMP 97.7; O2SAT 99
[2023-07-30] MEDS ORDERED: LEVO750T75 PO (16:40)
[2023-07-30 18:12] VITALS: BP 89/111; PULSE 53; RESP 18; TEMP 98
[2023-07-30] MEDS ORDERED: GABAPENTIN 300 MG CAP PO SCH (21:00)
[2023-07-31] MEDS ORDERED: GABAPENTIN 300 MG CAP PO SCH (09:00)
== END 2023-07-30 18:45 | disposition home or self-care (01) | DRG 720 ==
LOC: MED 23:27 → MTU 07-28 08:00
PROVIDERS: ADMIT Hospitalist; ATTEND Hospitalist
PROC: XW033E5 Introduction of Remdesivir Anti-infective into Peripheral Vein, Percutaneous Approach, New Technology Group 5 (ICD-10-PCS; principal; 2023-07-30)
DX: A41.9 Sepsis, unspecified organism (principal); J96.01 Acute respiratory failure with hypoxia; J12.82 Pneumonia due to coronavirus disease 2019; U07.1 COVID-19; G82.20 Paraplegia, unspecified; E11.9 Type 2 diabetes mellitus without complications; I10 Essential (primary) hypertension; K21.9 Gastro-esophageal reflux disease without esophagitis; E78.5 Hyperlipidemia, unspecified; Z79.2 Long term (current) use of antibiotics; Z79.899 Other long term (current) drug therapy; Z99.3 Dependence on wheelchair; Z86.718 Personal history of other venous thrombosis and embolism; Z79.01 Long term (current) use of anticoagulants
CPT/HCPCS: 36415; 36600; 71045; 80053; 80076; 81001; 82803; 83605; 83735; 84484; 85025; 85379; 85610; 85730; 87040; 87086; 93005; 96374; 96375; 99285; J0456; J0696; J7030; Q0092